=== PATIENT | male | born 1975 | race Caucasian/White ===

== ENCOUNTER 2019-09-09 20:38 | Inpatient (IN) ==
[2019-09-09] MEDS ORDERED: ALBUT/IPRATROP 3MG/0.5MG NEB 3 ML VIAL INH STA (21:02)
[2019-09-09] MEDS ORDERED: methylPREDNISolone 125 MG/2 ML VIAL IV STA (21:02)
--- NOTE | 2019-09-09 21:29 | XRay Report ---
XR chest 1V portable CLINICAL HISTORY: Shortness of breath. COMPARISON STUDY: 06/10/2016 FINDINGS: The heart is the upper limits of normal in size. There is a thoracic dextroscoliosis status post spinal rodding. There are chronic left-sided rib deformities. There are persistent areas of inc reased attenuation within the left midlung zone and right upper lung zone. The prior CT scan dated 06/10/2016 revealed no corresponding lobar consolidation., These areas of increased density are felt to b e related to overlying chest wall attenuation. No pneumothorax is visualized.[ IMPRESSION: 1. No active disease in the chest 2. Scoliosis status post spinal rodding 3. Areas of increased attenuation within the right upper lung zone and left midlung zone, likely rela kiko to overlying chest wall attenuation Electronically signed by: Surinder Edwards M.D. 09/09/2019 9:27 PM
[2019-09-09 21:53] LABS: Influenza A virus by PCR Neg for Influ A (Neg); Influenza B virus by PCR Neg for Influ B (Neg)
[2019-09-09 22:05] LABS: Basophils # (auto) 0.02 K/uL (0-0.2); Basophils % (auto) 0.2 %; Eosinophils # (auto) 0.37 K/uL (0-0.5); Eosinophils % (auto) 3.1 %; Hematocrit (blood only) 50.7 % (42-52); Hemoglobin 17.6 g/dL (14.0-18.0); Immature Granulocytes # (auto) 0.06 K/uL (0.00-0.02); Immature Granulocytes % (auto) 0.5 %; Lymphocytes # (auto) 0.86 K/uL (1.2-3.4); Lymphocytes % (auto) 7.2 %; Mean Corpuscular Hemoglobin 33.3 pg (25-34); Mean Corpuscular Hgb Conc 34.7 g/dL (32-36); Mean Platelet Volume 9.9 fL (7.4-10.4); Monocytes # (auto) 0.68 K/uL (0.11-0.59); Monocytes % (auto) 5.7 %; Neutrophils # (auto) 9.94 K/uL (1.4-6.5); Neutrophils % (auto) 83.3 %; Platelet Count 213 K/uL (130-400); RDW Coefficient of Variation 12.2 % (11.5-14.5); Red Blood Count 5.28 M/uL (4.7-6.1); White Blood Count 11.93 K/uL (4.8-10.8)
[2019-09-09 22:28] LABS: Albumin Globulin Ratio 0.9 (0.9-2); BUN Creatinine Ratio 13.4 (10-20); Bilirubin,Total 0.9 mg/dl (0.2-1); Calcium 9.6 mg/dl (8.5-10.1); Creatinine Clr Calc Pharmacy 123.2 ml/min; Est GFR (African American) 123.4; Est GFR (Non-African American) 106.5; Globulin 4.3 gm/dl (2.5-4.0); Total Protein 8.3 gm/dl (6.4-8.2)
[2019-09-09] MEDS ORDERED: SODIUM CHLORIDE 0.9% 1000ML 1,000 ML IV ONE (23:13)
[2019-09-09 23:18] LABS: Partial Thromboplastin Ratio 0.9; Partial Thromboplastin Time 23.8 Seconds (21.0-31.0); Prothrombin Time 10.7 Seconds (9.0-12.0)
[2019-09-09] MEDS ORDERED: OPTIRAY 320 125ml IV PRN (23:34)
[2019-09-09] MEDS: MAGNESIUM SULFATE / D5W 1 GM/100 ML BAG IV SCH (23:38)
[2019-09-09 23:52] LABS: Magnesium 2.1 mg/dl (1.8-2.4)
[2019-09-10 00:03] LABS: Base Excess ABG -3.1 mEq/L (-9-1.8); HCO3 ABG 22 mmol/L (19-24); PCO2 ABG 38 mmHg (35-46); PO2 ABG 73 mm/Hg (80-95); pH ABG 7.38 (7.35-7.45)
[2019-09-10 00:04] LABS: Allen Test POS (Pos)
[2019-09-10] MEDS: MAGNESIUM SULFATE / D5W 1 GM/100 ML BAG IV SCH (00:29)
[2019-09-10 00:40] LABS: Appearance Urine Clear (Clear); Bilirubin Urine Negative (Negative); Blood Urine Negative (Negative); Color Urine Yellow; Glucose Urine UA Negative (Negative); Ketones Urine Negative (Negative); Leukocyte Esterase Urine Negative (Negative); Nitrite Urine Negative (Negative); Protein Urine Negative (Negative); Specific Gravity Urine 1.045 (1.000-1.030); Urobilinogen Urine Negative (Negative)
--- NOTE | 2019-09-10 00:48 | History & Physical Report ---
Date of Service September 10, 2019 Assessment & Plan (1) Severe sepsis: SIRS plus lactic acid elevation plus hypoxemia secondary to recurrent acute bronchitis Failed outpatient treatment History scoliosis status post surgery Situational hypertension Medical telemetry Supplemental O2 Cultures, Doxycycline IVF, follow lactic acid nebs, prednisone course Pulmonary consult if without improvement RE respiratory failure DVT prophylaxis. Lovenox subcu Full code Total critical care time was 45 minutes. History of Present Illness Chief Complaint: Cough, S OB Primary Care Provider: Yinka Hoskins MD History obtained from patient and records. Medical history significant for scoliosis status post surgery. Recent confinement June 2016 for sepsis secondary to pneumonia. 2 weeks ago, patient noted sinus/chest congestion, cough productive of greenish sputum. Patient seen at PCPs office. No pneumonia on x-ray. Patient prescribed azithromycin, prednisone course, albuterol inhaler for complicated bronchitis. Improved symptoms. Patient went out hunting few days ago. He noted recurrence of bronchitis symptoms. Denies aspiration. Seen at PCPs office. Prescribed Augmentin, prednisone course. Worsening cough, S OB, accompanied by left-sided pleuritic chest pain. At the ER, O2 sats noted to be 80s on room air. Patient received Solu-Medrol and neb treatment for bronchitis. 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, landscaping contractor Allergies Allergy/AdvReac Type Severity Reaction Status Date / Time No Known Allergies Allergy Unverified 09/09/19 22:09 Home Medications Home Medications Medication Instructions Recorded Confirmed Type acetaminophen [Tylenol Extra 1,000 mg PO Q6H PRN 09/09/19 09/09/19 History Strength] albuterol sulfate 2 puff INHALATION Q4 PRN 09/09/19 09/09/19 History amoxicillin-pot clavulanate 1 tab PO Q12H 09/09/19 09/09/19 History [Augmentin] dextromethorphan-guaifenesin 1 tab PO Q12H PRN 09/09/19 09/09/19 History [Mucinex DM] Past Med/Surg History Medical History Pectus excavatum (Acute) Surgical History No pertinent past surgical history Family History Other No pertinent family history Social History Preferred Language: Egyptian Communication Ability: Effective Partner Required: No Beliefs That Will Affect Care: None Current Living Situation: Parent Feels Safe at Home: Yes Smoking Status: Never smoker Tobacco Type: smokeless tobacco ; Do You Dip or Chew Tobacco: Yes (1 can/week) ; Tobacco Cessation Education Requested by Patient: No Hx Alcohol Use: Yes Alcohol type: beer Hx Substance Use: No Review of Systems Review of Systems: As per HPI, all 10 systems reviewed, all other ROS negative Physical Exam Physical Exam: GENERAL: Slightly anxious, tremulous, minimal respiratory distress SKIN: Normal color, warm HEENT: Partial alopecia, pink palpebral conjunctivae, no ptosis, dry buccal mucosa NECK : Supple, no tenderness CHEST : Decreased breath sounds, sternal depression, no tenderness HEART : Tachycardic, no obvious murmurs ABDOMEN: Some distention, nontender EXTREMITIES : No LE swelling/tenderness, no other conspicuous deformities noted NEUROLOGIC : Coherent, no facial asymmetry, no other gross focality Results & Data Vital Signs (Past 12 Hours) Vital Signs Temp Pulse Pulse Resp BP Pulse Ox 09/10/19 00:00 109 H 20 153/81 H 95 09/09/19 23:00 117 H 23 149/79 H 93 09/09/19 22:31 121 H 17 137/78 93 09/09/19 22:01 120 H 18 99 09/09/19 22:00 116 H 24 132/94 100 09/09/19 21:50 107 H 22 99 09/09/19 21:40 112 H 29 H 100 09/09/19 21:30 110 H 26 H 99 09/09/19 21:20 110 H 25 H 99 09/09/19 21:12 105 H 20 92 09/09/19 21:11 92 09/09/19 21:10 107 H 29 H 91 09/09/19 21:01 106 H 28 H 93 09/09/19 21:00 106 H 31 H 173/104 H 92 09/09/19 20:59 109 H 33 H 116/88 93 09/09/19 20:57 105 H 29 H 95 09/09/19 20:44 36.5 C 112 H 28 H 207/98 H 89 L Laboratory Results Laboratory Results WBC 11.93 K/uL (4.8-10.8) H 09/09/19 21:31 RBC 5.28 M/uL (4.7-6.1) 09/09/19 21:31 Hgb 17.6 g/dL (14.0-18.0) 09/09/19 21:31 Hct 50.7 % (42-52) 09/09/19 21:31 MCV 96.0 fL (80-100) 09/09/19 21:31 MCH 33.3 pg (25-34) 09/09/19 21: MCHC 34.7 g/dL (32-36) 09/09/19 21:31 RDW Std Deviation 42.0 fL (36.4-46.3) 09/09/19 21: RDW Coeff of [place] 12.2 % (11.5-14.5) 09/09/19 21: Plt Count 213 K/uL (130-400) 09/09/19 21: MPV 9.9 fL (7.4-10.4) 09/09/19 21:31 Immature Gran % (Auto) 0.5 % 09/09/19 21:31 Neut % (Auto) 83.3 % 09/09/19 21: Lymph % (Auto) 7.2 % 09/09/19 21:31 [place] % (Auto) 5.7 % 09/09/19 21:31 Eos % (Auto) 3.1 % 09/09/19 21:31 Baso % (Auto) 0.2 % 09/09/19 21:31 Immature Gran # (Auto) 0.06 K/uL (0.00-0.02) H 09/09/19 21:31 Neut # (Auto) 9.94 K/uL (1.4-6.5) H 09/09/19 21: Lymph # (Auto) 0.86 K/uL (1.2-3.4) L 09/09/19 21:31 [place] # (Auto) 0.68 K/uL (0.11-0.59) H 09/09/19 21:31 Eos # (Auto) 0.37 K/uL (0-0.5) 09/09/19 21:31 Baso # (Auto) 0.02 K/uL (0-0.2) 09/09/19 21:31 PT 10.7 Seconds (9.0-12.0) 09/09/19 22:47 INR 1.0 (0.9-1.1) 09/09/19 22:47 APTT 23.8 Seconds (21.0-31.0) 09/09/19 22:47 PTT Ratio 0.9 09/09/19 22:47 ABG pH 7.38 (7.35-7.45) 09/09/19 23:54 ABG pCO2 38 mmHg (35-46) 09/09/19 23:54 ABG pO2 73 mm/Hg (80-95) L 09/09/19 23:54 ABG HCO3 22 mmol/L (19-24) 09/09/19 23:54 ABG O2 Saturation 95.0 % (90-95) 09/09/19 23:54 ABG Base Excess -3.1 mEq/L (-9-1.8) 09/09/19 23:54 Jose Miguel Test POS (Pos) 09/09/19 23:54 Barometric Pressure 722.4 mm/Hg 09/09/19 23:54 Oxygen Given ROOM AIR 09/09/19 23:54 Sodium 135 mmol/L (136-145) L 09/09/19 21:31 Potassium 4.0 mmol/L (3.5-5.1) 09/09/19 22:47 Chloride 103 mmol/L (98-107) 09/09/19 21:31 Carbon Dioxide 26 mmol/L (21-32) 09/09/19 21:31 Anion Gap 6.0 (3-11) 09/09/19 21:31 BUN 11 mg/dl (7-18) 09/09/19 21:31 Creatinine 0.84 mg/dl (0.6-1.4) 09/09/19 21:31 Est Cr Clr Drug Dosing 123.2 ml/min 09/09/19 21:31 Est GFR ( Amer) 123.4 09/09/19 21:31 Est GFR (Non-Af Amer) 106.5 09/09/19 21:31 BUN/Creatinine Ratio 13.4 (10-20) 09/09/19 21:31 Glucose 104 mg/dl (70-99) H 09/09/19 21:31 Lactate 3.4 mmol/L (0.4-2.0) H* 09/09/19 23:54 Calcium 9.6 mg/dl (8.5-10.1) 09/09/19 21:31 Magnesium 2.1 mg/dl (1.8-2.4) 09/09/19 22:47 Total Bilirubin 0.9 mg/dl (0.2-1) 09/09/19 21:31 AST 17 U/L (15-37) 09/09/19 22:47 ALT 40 U/L (12-78) 09/09/19 21:31 Alkaline Phosphatase 129 U/L (45-117) H 09/09/19 21:31 POC Troponin I < 0.03 ng/ml (0-0.045) 09/09/19 21:54 Total Protein 8.3 gm/dl (6.4-8.2) H 09/09/19 21:31 Albumin 4.0 gm/dl (3.4-5.0) 09/09/19 21:31 Globulin 4.3 gm/dl (2.5-4.0) H 09/09/19 21:31 Albumin/Globulin Ratio 0.9 (0.9-2) 09/09/19 21:31 Urine Color Yellow 09/10/19 00:30 Urine Appearance Clear (Clear) 09/10/19 00:30 Urine pH 6.0 (4.5-7.5) 09/10/19 00:30 Ur Specific [place] 1.045 (1.000-1.030) H 09/10/19 00:30 Urine Protein Negative (Negative) 09/10/19 00:30 Urine Glucose (UA) Negative (Negative) 09/10/19 00:30 Urine Ketones Negative (Negative) 09/10/19 00:30 Urine Blood Negative (Negative) 09/10/19 00:30 Urine Nitrite Negative (Negative) 09/10/19 00:30 Urine Bilirubin Negative (Negative) 09/10/19 00:30 Urine Urobilinogen Negative (Negative) 09/10/19 00:30 Ur Leukocyte Esterase Negative (Negative) 09/10/19 00:30 Influenza Type A (PCR) Neg for Influ A (Neg) 09/09/19 21:10 Influenza Type B (PCR) Neg for Influ B (Neg) 09/09/19 21:[address] chest initial read: Linear reticular opacity right middle lobe probable atelectasis or scarring. No other airspace opacities. No pulmonary emboli. Pectus excavatum deformity. EKG as per my interpretation rate 115, sinus tachycardia, normal axis, incomplete right bundle branch block, ST depression anterolateral leads
[2019-09-10] MEDS ORDERED: LACTATED RINGER'S 1,000 ML IV ONE ×3 (00:51→23:50)
[2019-09-10] MEDS ORDERED: DOXYCYCLINE HYCLATE 100 MG in DEXTROSE 5% 100 ML IV STA (00:54)
--- NOTE | 2019-09-10 01:20 | Emergency Department Note ---
Entered by Rachel Crump acting as a scribe for History of Present Illness General Chief complaint: Shortness of Breath/Dyspnea Stated complaint: SOB Time Seen by Provider: 09/09/19 20:57 Source: patient History of Present Illness Onset (ago): week(s) (2) Location: chest Pain Consistency: + constant Quality: + other (productive cough) Associated symptoms: + chest pain; no fever/chills and no nausea/vomiting The patient is a 43 year old male who presents to the Emergency Room with complaints of a constant productive cough with yellow/green phlegm beginning 2 weeks ago. The patient reports left-sided chest tightness with coughing and breathing. The patient reports he was started on a Z-Maksim which helped a little. He states he was then given prednisone, but states he finished it 4 days ago. He was also placed on amoxicillin which is not helping his symptoms. The patient denies fever, and vomiting. He denies a history of smoking. He denies a history of emphysema, COPD or asthma. He states he recently had x-rays done at his PCP's office, but has not received the results yet. Home Medications Home Medications Medication Instructions Recorded Confirmed Type acetaminophen [Tylenol Extra 1,000 mg PO Q6H PRN 09/09/19 09/09/19 History Strength] albuterol sulfate 2 puff INHALATION Q4 PRN 09/09/19 09/09/19 History amoxicillin-pot clavulanate 1 tab PO Q12H 09/09/19 09/09/19 History [Augmentin] dextromethorphan-guaifenesin 1 tab PO Q12H PRN 09/09/19 09/09/19 History [Mucinex DM] Allergies Allergy/AdvReac Type Severity Reaction Status Date / Time No Known Allergies Allergy Unverified 09/09/19 22:09 Past Med/Surg History Medical History Pectus excavatum (Acute) Surgical History No pertinent past surgical history Family History Other No pertinent family history Social History Feels Safe at Home: Yes Smoking Status: Never smoker Review of Systems See HPI for pertinent positives & negatives. and A total of 10 systems reviewed and were otherwise negative Physical Exam Vital Signs Vital Signs - 24 hr 09/09/19 20:44 09/09/19 20:57 09/09/19 20:59 Temperature 36.5 C Temperature Source Oral Pulse Rate 112 H 105 H 109 H Pulse Rate [Right Finger] Pulse Rate from SpO2 Sensor 106 H 113 H Respiratory Rate 28 H 29 H 33 H Respiratory Effort / Characteristics Labored Blood Pressure 207/98 H 116/88 Blood Pressure Mean 134 108 Pulse Oximetry 89 L 95 93 Oxygen Delivery Method Room Air Sepsis Recent Fever Within 48 Hours No Sepsis New/Unexplained Change in Mental Status No Sepsis Action Taken by Nursing No Action Required 09/09/19 21:00 09/09/19 21:01 09/09/19 21:10 Temperature Temperature Source Pulse Rate 106 H 106 H 107 H Pulse Rate [Right Finger] Pulse Rate from SpO2 Sensor 112 H 105 H 109 H Respiratory Rate 31 H 28 H 29 H Respiratory Effort / Characteristics Blood Pressure 173/104 H Blood Pressure Mean 131 Pulse Oximetry 92 93 91 Oxygen Delivery Method Sepsis Recent Fever Within 48 Hours Sepsis New/Unexplained Change in Mental Status Sepsis Action Taken by Nursing 09/09/19 21:11 09/09/19 21:12 09/09/19 21:20 Temperature Temperature Source Pulse Rate 110 H Pulse Rate [Right Finger] 105 H Pulse Rate from SpO2 Sensor 111 H Respiratory Rate 20 25 H Respiratory Effort / Characteristics Spontaneous Blood Pressure Blood Pressure Mean Pulse Oximetry 92 92 99 Oxygen Delivery Method Room Air Room Air Sepsis Recent Fever Within 48 Hours Sepsis New/Unexplained Change in Mental Status Sepsis Action Taken by Nursing 09/09/19 21:30 09/09/19 21:40 09/09/19 21:50 Temperature Temperature Source Pulse Rate 110 H 112 H 107 H Pulse Rate [Right Finger] Pulse Rate from SpO2 Sensor 112 H 111 H 112 H Respiratory Rate 26 H 29 H 22 Respiratory Effort / Characteristics Blood Pressure Blood Pressure Mean Pulse Oximetry 99 100 99 Oxygen Delivery Method Sepsis Recent Fever Within 48 Hours Sepsis New/Unexplained Change in Mental Status Sepsis Action Taken by Nursing 09/09/19 22:00 09/09/19 22:01 09/09/19 22:31 Temperature Temperature Source Pulse Rate 116 H 120 H 121 H Pulse Rate [Right Finger] Pulse Rate from SpO2 Sensor 116 H 124 H 121 H Respiratory Rate 24 18 17 Respiratory Effort / Characteristics Blood Pressure 132/94 137/78 Blood Pressure Mean 100 93 Pulse Oximetry 100 99 93 Oxygen Delivery Method Room Air Sepsis Recent Fever Within 48 Hours Sepsis New/Unexplained Change in Mental Status Sepsis Action Taken by Nursing 09/09/19 23:00 09/10/19 00:00 Temperature Temperature Source Pulse Rate 117 H 109 H Pulse Rate [Right Finger] Pulse Rate from SpO2 Sensor 116 H 108 H Respiratory Rate 23 20 Respiratory Effort / Characteristics Blood Pressure 149/79 H 153/81 H Blood Pressure Mean 103 92 Pulse Oximetry 93 95 Oxygen Delivery Method Room Air Room Air Sepsis Recent Fever Within 48 Hours Sepsis New/Unexplained Change in Mental Status Sepsis Action Taken by Nursing Constitutional: Vital signs reviewed. Eyes: Pupils are equal round reactive to light. Conjunctiva are noninjected. ENT: Pharynx is clear without erythema or exudate. Mucous membranes are moist. Neck supple without meningeal signs. Respiratory: Diffuse wheezing bilaterally. Breath sounds are equal bilaterally. Cardiovascular: Tachycardic rate of 103. Regular rhythm. No rubs or gallops. GI: Soft, nondistended and nontender. Bowel sounds are present. Musculoskeletal: No peripheral edema. No lower extremity tenderness. Pectus excavatum. Integumentary: No cyanosis. Neurological: The patient is awake and alert. No focal deficits. Psychiatric: Normal affect. Course Course 2100: Past medical records reviewed. The patient was evaluated in room B12B. A complete history and physical exam was performed. 2018: Upon reevaluation, the patient feels better. He still has significant wheezing on exam. 2300: Upon reevaluation, the patient O2 saturation was 92%. He still has wheezing. I recommended hospitalization. The patient verbalized agreement of the treatment plan. I spoke with Dr. Crandall of the [facility]. The patient will be evaluated for further management and care. Administered Medications Magnesium Sulfate/Dextrose (Magnesium Sulfate / D5w) 1 gm in 100 mls @ 100 mls/hr IV Q1H ERNIE Stop: 09/10/19 01:29 Last Admin: 09/10/19 00:29 Dose: 100 mls/hr Documented by: [id number] Infusion: 09/10/19 00:29 Dose: 100 mls/hr Documented by: [id number] Admin: 09/09/19 23:38 Dose: 100 mls/hr Documented by: [id number] Ioversol (Optiray 320 125ml) 125 ml IV ONCE PRN PRN Reason: Interaction Checking Stop: 09/13/19 23:33 Last Admin: 09/09/19 23:34 Dose: 109 ml Documented by: [id number] Discontinued Medications Albuterol (Duoneb) 12 ml INH ONE STA Stop: 09/09/19 21:03 Last Admin: 09/09/19 21:11 Dose: 12 ml Documented by: [id number] Sodium Chloride (Nss 1000ml) 1,000 mls @ 999 mls/hr IV .Q1H1M ONE Stop: 09/10/19 00:13 Last Infusion: 09/10/19 00:29 Dose: 0 mls/hr Documented by: [id number] Admin: 09/09/19 23:39 Dose: 999 mls/hr Documented by: [id number] Methylprednisolone (Solumedrol) 125 mg IV NOW STA Stop: 09/09/19 21:03 Last Admin: 09/09/19 21:24 Dose: 125 mg Documented by: [id number] Critical Care Time Critical Care Time: Yes Total Critical Care Time: 35 I have personally spent 35 minutes of critical care time in the direct management of this patient. This includes bedside care, interpretation of diagnostic studies, and testing, discussion with consultants, patient, and family members, and other required patient management activities. This 35 minutes is in excess of all separately billable procedures. Medical Decision Making Differential Diagnosis Differential diagnosis: pneumonia, asthma, influenza, emphysema, bronchitis Medical Records Attestation: I reviewed the patient's medical records. I did perform a limited focused review of portions of the patient's old chart on the electronic medical record. The patient has had no recent pertinent visits to this hospital. Home Medications Current Medication List: was personally reviewed by me Laboratory Data Attestation: I reviewed the patient's lab results. Result diagrams: 09/09/19 21:31 09/09/19 22:47 Lab Results 09/09/19 09/09/19 09/09/19 Range/Units 21:10 21:31 21:31 WBC 11.93 H (4.8-10.8) K/uL RBC 5.28 (4.7-6.1) M/uL Hgb 17.6 (14.0-18.0) g/dL Hct 50.7 (42-52) % MCV 96.0 (80-100) fL MCH 33.3 (25-34) pg MCHC 34.7 (32-36) g/dL RDW Std Deviation 42.0 (36.4-46.3) fL RDW Coeff of K[place] 12.2 (11.5-14.5) % Plt Count 213 (130-400) K/uL MPV 9.9 (7.4-10.4) fL Immature Gran % (Auto) 0.5 % Neut % (Auto) 83.3 % Lymph % (Auto) 7.2 % [place] % (Auto) 5.7 % Eos % (Auto) 3.1 % Baso % (Auto) 0.2 % Immature Gran # (Auto) 0.06 H (0.00-0.02) K/uL Neut # (Auto) 9.94 H (1.4-6.5) K/uL Lymph # (Auto) 0.86 L (1.2-3.4) K/uL [place] # (Auto) 0.68 H (0.11-0.59) K/uL Eos # (Auto) 0.37 (0-0.5) K/uL Baso # (Auto) 0.02 (0-0.2) K/uL PT Cancelled INR Cancelled APTT Cancelled PTT Ratio Cancelled ABG pH (7.35-7.45) ABG pCO2 (35-46) mmHg ABG pO2 (80-95) mm/Hg ABG HCO3 (19-24) mmol/L ABG O2 Saturation (90-95) % ABG Base Excess (-9-1.8) mEq/L Jose Miguel Test (Pos) Barometric Pressure mm/Hg Oxygen Given Sodium (136-145) mmol/L Potassium (3.5-5.1) mmol/L Chloride (98-107) mmol/L Carbon Dioxide (21-32) mmol/L Anion Gap (3-11) BUN (7-18) mg/dl Creatinine (0.6-1.4) mg/dl Est Cr Clr Drug Dosing ml/min Est GFR ( Amer) Est GFR (Non-Af Amer) BUN/Creatinine Ratio (10-20) Glucose (70-99) mg/dl Lactate (0.4-2.0) mmol/L Calcium (8.5-10.1) mg/dl Magnesium (1.8-2.4) mg/dl Total Bilirubin (0.2-1) mg/dl AST (15-37) U/L ALT (12-78) U/L Alkaline Phosphatase (45-117) U/L POC Troponin I (0-0.045) ng/ml Total Protein (6.4-8.2) gm/dl Albumin (3.4-5.0) gm/dl Globulin (2.5-4.0) gm/dl Albumin/Globulin Ratio (0.9-2) Urine Color Urine Appearance (Clear) Urine pH (4.5-7.5) Ur Specific [place] (1.000-1.030) Urine Protein (Negative) Urine Glucose (UA) (Negative) Urine Ketones (Negative) Urine Blood (Negative) Urine Nitrite (Negative) Urine Bilirubin (Negative) Urine Urobilinogen (Negative) Ur Leukocyte Esterase (Negative) Influenza Type A (PCR) Neg for Influ A (Neg) Influenza Type B (PCR) Neg for Influ B (Neg) 09/09/19 09/09/19 09/09/19 Range/Units 21:31 21:54 22:47 WBC (4.8-10.8) K/uL RBC (4.7-6.1) M/uL Hgb (14.0-18.0) g/dL Hct (42-52) % MCV (80-100) fL MCH (25-34) pg MCHC (32-36) g/dL RDW Std Deviation (36.4-46.3) fL RDW Coeff of Kota (11.5-14.5) % Plt Count (130-400) K/uL MPV (7.4-10.4) fL Immature Gran % (Auto) % Neut % (Auto) % Lymph % (Auto) % [place] % (Auto) % Eos % (Auto) % Baso % (Auto) % Immature Gran # (Auto) (0.00-0.02) K/uL Neut # (Auto) (1.4-6.5) K/uL Lymph # (Auto) (1.2-3.4) K/uL [place] # (Auto) (0.11-0.59) K/uL Eos # (Auto) (0-0.5) K/uL Baso # (Auto) (0-0.2) K/uL PT 10.7 INR 1.0 APTT 23.8 PTT Ratio 0.9 ABG pH (7.35-7.45) ABG pCO2 (35-46) mmHg ABG pO2 (80-95) mm/Hg ABG HCO3 (19-24) mmol/L ABG O2 Saturation (90-95) % ABG Base Excess (-9-1.8) mEq/L Jose Miguel Test (Pos) Barometric Pressure mm/Hg Oxygen Given Sodium 135 L (136-145) mmol/L Potassium (3.5-5.1) mmol/L Chloride 103 (98-107) mmol/L Carbon Dioxide 26 (21-32) mmol/L Anion Gap 6.0 (3-11) BUN 11 (7-18) mg/dl Creatinine 0.84 (0.6-1.4) mg/dl Est Cr Clr Drug Dosing 123.2 ml/min Est GFR ( Amer) 123.4 Est GFR (Non-Af Amer) 106.5 BUN/Creatinine Ratio 13.4 (10-20) Glucose 104 H (70-99) mg/dl Lactate (0.4-2.0) mmol/L Calcium 9.6 (8.5-10.1) mg/dl Magnesium (1.8-2.4) mg/dl Total Bilirubin 0.9 (0.2-1) mg/dl AST (15-37) U/L ALT 40 (12-78) U/L Alkaline Phosphatase 129 H (45-117) U/L POC Troponin I < 0.03 (0-0.045) ng/ml Total Protein 8.3 H (6.4-8.2) gm/dl Albumin 4.0 (3.4-5.0) gm/dl Globulin 4.3 H (2.5-4.0) gm/dl Albumin/Globulin Ratio 0.9 (0.9-2) Urine Color Urine Appearance (Clear) Urine pH (4.5-7.5) Ur Specific [place] (1.000-1.030) Urine Protein (Negative) Urine Glucose (UA) (Negative) Urine Ketones (Negative) Urine Blood (Negative) Urine Nitrite (Negative) Urine Bilirubin (Negative) Urine Urobilinogen (Negative) Ur Leukocyte Esterase (Negative) Influenza Type A (PCR) (Neg) Influenza Type B (PCR) (Neg) 09/09/19 09/09/19 09/09/19 Range/Units 22:47 23:54 23:54 WBC (4.8-10.8) K/uL RBC (4.7-6.1) M/uL Hgb (14.0-18.0) g/dL Hct (42-52) % MCV (80-100) fL MCH (25-34) pg MCHC (32-36) g/dL RDW Std Deviation (36.4-46.3) fL RDW Coeff of Kota (11.5-14.5) % Plt Count (130-400) K/uL MPV (7.4-10.4) fL Immature Gran % (Auto) % Neut % (Auto) % Lymph % (Auto) % [place] % (Auto) % Eos % (Auto) % Baso % (Auto) % Immature Gran # (Auto) (0.00-0.02) K/uL Neut # (Auto) (1.4-6.5) K/uL Lymph # (Auto) (1.2-3.4) K/uL [place] # (Auto) (0.11-0.59) K/uL Eos # (Auto) (0-0.5) K/uL Baso # (Auto) (0-0.2) K/uL PT INR APTT PTT Ratio ABG pH 7.38 (7.35-7.45) ABG pCO2 38 (35-46) mmHg ABG pO2 73 L (80-95) mm/Hg ABG HCO3 22 (19-24) mmol/L ABG O2 Saturation 95.0 (90-95) % ABG Base Excess -3.1 (-9-1.8) mEq/L Jose Miguel Test POS (Pos) Barometric Pressure 722.4 mm/Hg Oxygen Given ROOM AIR Sodium (136-145) mmol/L Potassium 4.0 (3.5-5.1) mmol/L Chloride (98-107) mmol/L Carbon Dioxide (21-32) mmol/L Anion Gap (3-11) BUN (7-18) mg/dl Creatinine (0.6-1.4) mg/dl Est Cr Clr Drug Dosing ml/min Est GFR ( Amer) Est GFR (Non-Af Amer) BUN/Creatinine Ratio (10-20) Glucose (70-99) mg/dl Lactate 3.4 H* (0.4-2.0) mmol/L Calcium (8.5-10.1) mg/dl Magnesium 2.1 (1.8-2.4) mg/dl Total Bilirubin (0.2-1) mg/dl AST 17 (15-37) U/L ALT (12-78) U/L Alkaline Phosphatase (45-117) U/L POC Troponin I (0-0.045) ng/ml Total Protein (6.4-8.2) gm/dl Albumin (3.4-5.0) gm/dl Globulin (2.5-4.0) gm/dl Albumin/Globulin Ratio (0.9-2) Urine Color Urine Appearance (Clear) Urine pH (4.5-7.5) Ur Specific [place] (1.000-1.030) Urine Protein (Negative) Urine Glucose (UA) (Negative) Urine Ketones (Negative) Urine Blood (Negative) Urine Nitrite (Negative) Urine Bilirubin (Negative) Urine Urobilinogen (Negative) Ur Leukocyte Esterase (Negative) Influenza Type A (PCR) (Neg) Influenza Type B (PCR) (Neg) 09/10/19 Range/Units 00:30 WBC (4.8-10.8) K/uL RBC (4.7-6.1) M/uL Hgb (14.0-18.0) g/dL Hct (42-52) % MCV (80-100) fL MCH (25-34) pg MCHC (32-36) g/dL RDW Std Deviation (36.4-46.3) fL RDW Coeff of Kota (11.5-14.5) % Plt Count (130-400) K/uL MPV (7.4-10.4) fL Immature Gran % (Auto) % Neut % (Auto) % Lymph % (Auto) % [place] % (Auto) % Eos % (Auto) % Baso % (Auto) % Immature Gran # (Auto) (0.00-0.02) K/uL Neut # (Auto) (1.4-6.5) K/uL Lymph # (Auto) (1.2-3.4) K/uL [place] # (Auto) (0.11-0.59) K/uL Eos # (Auto) (0-0.5) K/uL Baso # (Auto) (0-0.2) K/uL PT INR APTT PTT Ratio ABG pH (7.35-7.45) ABG pCO2 (35-46) mmHg ABG pO2 (80-95) mm/Hg ABG HCO3 (19-24) mmol/L ABG O2 Saturation (90-95) % ABG Base Excess (-9-1.8) mEq/L Jose Miguel Test (Pos) Barometric Pressure mm/Hg Oxygen Given Sodium (136-145) mmol/L Potassium (3.5-5.1) mmol/L Chloride (98-107) mmol/L Carbon Dioxide (21-32) mmol/L Anion Gap (3-11) BUN (7-18) mg/dl Creatinine (0.6-1.4) mg/dl Est Cr Clr Drug Dosing ml/min Est GFR ( Amer) Est GFR (Non-Af Amer) BUN/Creatinine Ratio (10-20) Glucose (70-99) mg/dl Lactate (0.4-2.0) mmol/L Calcium (8.5-10.1) mg/dl Magnesium (1.8-2.4) mg/dl Total Bilirubin (0.2-1) mg/dl AST (15-37) U/L ALT (12-78) U/L Alkaline Phosphatase (45-117) U/L POC Troponin I (0-0.045) ng/ml Total Protein (6.4-8.2) gm/dl Albumin (3.4-5.0) gm/dl Globulin (2.5-4.0) gm/dl Albumin/Globulin Ratio (0.9-2) Urine Color Yellow Urine Appearance Clear (Clear) Urine pH 6.0 (4.5-7.5) Ur Specific [place] 1.045 H (1.000-1.030) Urine Protein Negative (Negative) Urine Glucose (UA) Negative (Negative) Urine Ketones Negative (Negative) Urine Blood Negative (Negative) Urine Nitrite Negative (Negative) Urine Bilirubin Negative (Negative) Urine Urobilinogen Negative (Negative) Ur Leukocyte Esterase Negative (Negative) Influenza Type A (PCR) (Neg) Influenza Type B (PCR) (Neg) Imaging Data Radiologist's Impression: Radiology results as stated below per my review and the radiologist's interpretation: XR chest 1V portable CLINICAL HISTORY: Shortness of breath. COMPARISON STUDY: 06/10/2016 FINDINGS: The heart is the upper limits of normal in size. There is a thoracic dextroscoliosis status post spinal rodding. There are chronic left-sided rib deformities. There are persistent areas of increased attenuation within the left midlung zone and right upper lung zone. The prior CT scan dated 06/10/2016 revealed no corresponding lobar consolidation., These areas of increased density are felt to be related to overlying chest wall attenuation. No pneumothorax is visualized.[ IMPRESSION: 1. No active disease in the chest 2. Scoliosis status post spinal rodding 3. Areas of increased attenuation within the right upper lung zone and left midlung zone, likely related to overlying chest wall attenuation Electronically signed by: Surinder Edwards M.D. 09/09/2019 9:27 PM ECG Data Attestation: I personally reviewed and interpreted this ECG as follows: Indication: + chest pain Rate (beats per minute): 111 Rhythm: + sinus tachycardia ECG Intervals/blocks: + Right Bundle branch block (incomplete) ECG ST segments: + Nonspecific ST abnormalities (laterally) ECG Findings: no PVCs Blood Pressure Blood Pressure Findings: Elevated blood pressure Blood Pressure Disposition: further management by hospitalist [facility] Narrative I did evaluate the patient as noted above. The patient is presenting with a 2- week history of cold symptoms and difficulty breathing which has gotten worse recently. On exam he is wheezing diffusely. He denies any history of smoking or asthma or COPD. IV access was established. His O2 saturations are in the low 90s. He was 89% in triage. The patient was placed on a continuous classroom monitor. Cardiac monitoring: Indication: Respiratory distress and tachycardia. Rate and rhythm: Sinus tachycardia. Rate of 111. No dysrhythmia or widening of the QRS. I did order and personally review the patient's 12-lead EKG as described above. Twelve-lead EKG does not demonstrate any acute ischemia. He does have tachycardia. I did order and personally reviewed the images of the patient's chest x-ray as described above. He has no evidence of pneumonia. I did order and review the patient's blood work as noted in the electronic medical record. CBC demonstrates a mild leukocytosis. No anemia. Electrolytes are unremarkable other than a sodium 135. Troponin is negative. I did treat the patient with IV Solu-Medrol. He was also given a continuous hour-long DuoNeb. I did reexamine the patient. He still has continued wheezing. His O2 saturations remained in the low 90s and he is tachypneic. I did give him IV magnesium. I did recommend hospitalization given his continued symptoms. I did discuss the case with the hospitalist and caseworker intake. Impression & Plan Acute respiratory distress, Hypoxia, Bronchitis with bronchospasm, Pectus excavatum Discharge Plan Visit Data Chief Complaint: Shortness of Breath/Dyspnea Stated Complaint: SOB ED Provider: Jean Goodson Discharge Problem: Acute respiratory distress, Hypoxia, Bronchitis with bronchospasm, Pectus excavatum Patient Disposition: Being Evaluated by Hospitalist Forms Stand Alone Forms: My [facility] Prescriptions Prescriptions: No Action acetaminophen [Tylenol Extra Strength] 500 mg Tablet 1,000 mg PO Q6H PRN (Reason: Pain) RF: 0 Mucinex DM 30-600 mg Tablet Extended Release 12 Hr 1 tab PO Q12H PRN (Reason: Cough) RF: 0 albuterol sulfate 90 mcg/actuation Hfa Aerosol Inhaler 2 puff INHALATION Q4 PRN (Reason: Wheezing) RF: 0 amoxicillin-pot clavulanate [Augmentin] 875-125 mg Tablet 1 tab PO Q12H RF: 0 Referrals Referrals: Yinka Hoskins MD [Primary Care Provider] - The scribe's documentation has been prepared under my direction and personally reviewed by me in its entirety. I confirm that the note above accurately reflects all work, treatment, procedures, and medical decision making performed by me.
[2019-09-10] MEDS ORDERED: ACETAMINOPHEN 325 MG TAB PO PRN (01:48)
[2019-09-10] MEDS ORDERED: MoRPHine SULFATE 4 MG/ML 1 ML CARP\\VIAL IV PRN (01:48)
[2019-09-10] MEDS ORDERED: XOPENEX/ATROVENT 1.25mg/0.5MG NEB COMBO NEB SCH (01:48)
[2019-09-10] MEDS ORDERED: OXYCODONE HCL IR 5 MG TAB (IMMEDIATE RELEASE) PO PRN (01:48)
[2019-09-10] MEDS ORDERED: PROMETHAZINE HCL 12.5 MG in SODIUM CHLORIDE 0.9% 50 ML IV PRN (01:48)
[2019-09-10] MEDS ORDERED: LORazepam 0.5 MG/1 ML VIAL IV PRN (01:48)
[2019-09-10] MEDS: IPRATROPIUM BROMIDE NEB SOLN 0.02% 2.5 ML VIAL INH SCH ×4 (02:00→19:46)
[2019-09-10] MEDS: LEVALBUTEROL 1.25MG/0.5ML NEB INH SCH ×4 (02:01→19:46)
[2019-09-10 02:13] LABS: Thyroid Stimulating Hormone 0.538 uIu/ml (0.300-4.500)
[2019-09-10] MEDS ORDERED: LACTATED RINGER'S 1,000 ML IV SCH ×2 (03:00→21:00)
[2019-09-10 05:44] LABS: Eosinophils # (auto) 0.01 K/uL (0-0.5); Eosinophils % (auto) 0.1 %; Hematocrit (blood only) 43.6 % (42-52); Hemoglobin 14.7 g/dL (14.0-18.0); Immature Granulocytes # (auto) 0.03 K/uL (0.00-0.02); Immature Granulocytes % (auto) 0.4 %; Lymphocytes # (auto) 0.32 K/uL (1.2-3.4); Lymphocytes % (auto) 4.8 %; Mean Corpuscular Hemoglobin 31.6 pg (25-34); Mean Corpuscular Hgb Conc 33.7 g/dL (32-36); Mean Corpuscular Volume 93.8 fL (80-100); Mean Platelet Volume 9.2 fL (7.4-10.4); Monocytes # (auto) 0.03 K/uL (0.11-0.59); Monocytes % (auto) 0.4 %; Neutrophils # (auto) 6.32 K/uL (1.4-6.5); Neutrophils % (auto) 94.3 %; Platelet Count 202 K/uL (130-400); RDW Coefficient of Variation 12.1 % (11.5-14.5); RDW Standard Deviation 40.9 fL (36.4-46.3); Red Blood Count 4.65 M/uL (4.7-6.1); White Blood Count 6.71 K/uL (4.8-10.8)
[2019-09-10 05:59] LABS: Calcium 8.7 mg/dl (8.5-10.1); Creatinine Clr Calc Pharmacy 135.7 ml/min; Est GFR (Non-African American) 112.2; Potassium 4.3 mmol/L (3.5-5.1)
[2019-09-10] MEDS ORDERED: DEXTROSE 50% 50 ML SYRINGE IV PRN (06:11)
[2019-09-10] MEDS ORDERED: GLUCAGON FOR INJ 1 MG VIAL SQ PRN (06:11)
[2019-09-10] MEDS ORDERED: CARBOHYDRATES FOR HYPOGLYCEMIA PO PRN (06:11)
[2019-09-10] MEDS ORDERED: GLUCOSE 10 TABS/TUBE PO PRN (06:11)
[2019-09-10] MEDS ORDERED: GLUCOSE 40% GEL 15 GM TUBE PO PRN (06:11)
[2019-09-10] MEDS: INSULIN ASPART 100 UNITS/ML 3 ML PEN SC SCH ×4 (06:27→20:11)
[2019-09-10] MEDS ORDERED: LANTUS PER UNIT CHARGE SQ SCH (06:30)
[2019-09-10 07:24] LABS: Estimated Average Glucose 117 mg/dl; Hemoglobin A1C 5.7 % (4.5-5.6)
--- NOTE | 2019-09-10 07:24 | CT Scan Report ---
CHEST CTA for PULMONARY ARTERIES CT DOSE: 514.41 mGy.cm HISTORY: Atypical chest pain. TECHNIQUE: Multiaxial CT images of the chest were performed following the intravenous administration of contrast to evaluate the pulmonary arteries. Maximal intensity projection images were also obtaine d. A dose lowering technique was utilized adhering to the principles of ALARA. COMPARISON STUDY: Chest CT 06/10/2016. Chest CTA 06/07/2016. FINDINGS: Normal caliber thoracic aorta with no evidence for dissection. The heart is normal in size. No pleural or pericardial effusions. No filling defects within the pulmonary arteries to suggest pul monary embolus. No mediastinal or hilar lymphadenopathy. Normal esophagus. Limited views of the upper abdomen demonstrate a normal liver, spleen, and adrenal glands. Scoliosis with thoracic spinal Harri ngton rods are again noted. Pectus excavatum deformity remains unchanged. No fractures within the vis ualized osseous structures. No pneumothorax. The central airways are patent. Stable linear scarlike d ensities within the right anterior lung. No new focal lung consolidations to suggest pneumonia. IMPRESSION: 1. No evidence for pulmonary embolus. 2. Additional stable findings as described above. Electronically signed by: Zack Barrios M.D. 09/10/2019 7:22 AM
[2019-09-10] MEDS: predniSONE 20 MG TAB PO SCH (07:55)
[2019-09-10] MEDS: ENOXAPARIN INJ 40 MG/0.4 ML SYR SQ SCH (07:56)
[2019-09-10] MEDS ORDERED: PNEUMOCOCCAL Polysaccharide Vaccine 25mcg/0.5mL vial/Syr IM ONE (08:00)
[2019-09-10] MEDS ORDERED: methylPREDNISolone 40 MG in SYRINGE 0 ML IV SCH (09:00)
[2019-09-10] MEDS ORDERED: SODIUM CHLORIDE 0.9% 1000ML 1,000 ML IV ONE (19:49)
[2019-09-10] MEDS: DOXYCYCLINE HYCLATE 100 MG CAP PO SCH (20:09)
--- NOTE | 2019-09-10 21:28 | Hospitalist Progress Note ---
Date of Service September 10, 2019 Subjective Patient seen and examined in room N277. patient is ambulating, no longer using supplemental oxygen and comfortably breathing on room air. Says his respiratory distress is usually triggered by dust (in cabin where he was for hunting), or hot steam (shower). Reports diagnosis of asthma as a child, used inhaler for only very short time. We will continue to closely monitor his respiratory status. Results & Data Vital Signs (Past 12 Hours) Vital Signs Temp Pulse Pulse Resp BP Pulse Ox 09/10/19 19:47 103 H 18 96 09/10/19 19:33 36.5 C 107 H 18 158/80 H 94 09/10/19 16:13 108 H 09/10/19 15:34 36.7 C 110 H 20 134/80 94 09/10/19 13:36 100 H 18 96 09/10/19 11:25 36.8 C 99 H 18 135/74 95
[2019-09-11] MEDS: IPRATROPIUM BROMIDE NEB SOLN 0.02% 2.5 ML VIAL INH SCH ×3 (01:41→13:32)
[2019-09-11] MEDS: LEVALBUTEROL 1.25MG/0.5ML NEB INH SCH ×3 (01:41→13:32)
[2019-09-11] MEDS ORDERED: LACTATED RINGER'S 1,000 ML IV SCH (02:00)
[2019-09-11 04:09] LABS: Basophils # (auto) 0.01 K/uL (0-0.2); Basophils % (auto) 0.1 %; Eosinophils # (auto) 0.07 K/uL (0-0.5); Eosinophils % (auto) 0.5 %; Hematocrit (blood only) 39.4 % (42-52); Hemoglobin 12.9 g/dL (14.0-18.0); Immature Granulocytes # (auto) 0.06 K/uL (0.00-0.02); Immature Granulocytes % (auto) 0.4 %; Lymphocytes % (auto) 12.1 %; Mean Corpuscular Hemoglobin 31.7 pg (25-34); Mean Corpuscular Hgb Conc 32.7 g/dL (32-36); Mean Corpuscular Volume 96.8 fL (80-100); Monocytes % (auto) 9.2 %; Neutrophils # (auto) 10.93 K/uL (1.4-6.5); Neutrophils % (auto) 77.7 %; Platelet Count 209 K/uL (130-400); RDW Coefficient of Variation 12.2 % (11.5-14.5); Red Blood Count 4.07 M/uL (4.7-6.1); White Blood Count 14.07 K/uL (4.8-10.8)
[2019-09-11 04:28] LABS: Calcium 8.7 mg/dl (8.5-10.1); Creatinine Clr Calc Pharmacy 132.1 ml/min; Est GFR (African American) 128.6; Magnesium 2.2 mg/dl (1.8-2.4); Potassium 4.1 mmol/L (3.5-5.1)
[2019-09-11] MEDS ORDERED: LACTATED RINGER'S 1,000 ML IV STA (05:05)
[2019-09-11] MEDS: DOXYCYCLINE HYCLATE 100 MG CAP PO SCH ×2 (07:43→20:03)
[2019-09-11] MEDS: predniSONE 20 MG TAB PO SCH (07:43)
[2019-09-11] MEDS: ENOXAPARIN INJ 40 MG/0.4 ML SYR SQ SCH (07:44)
[2019-09-11] MEDS: INSULIN ASPART 100 UNITS/ML 3 ML PEN SC SCH ×4 (08:31→21:16)
[2019-09-11] MEDS: INSULIN GLARGINE SOLOSTAR 100 UNITS/ML 3 ML PEN SQ SCH (08:31)
[2019-09-11] MEDS ORDERED: LIDOCAINE 5% 1 PATCH TD SCH (19:30)
[2019-09-11] MEDS: ACETAMINOPHEN 325 MG TAB PO SCH (20:02)
[2019-09-11] MEDS: guaiFENesin 600 MG TABCR PO SCH (20:03)
--- NOTE | 2019-09-11 20:17 | Hospitalist Progress Note ---
Date of Service September 11, 2019 Assessment & Plan (1) Severe sepsis: SIRS plus lactic acid elevation plus hypoxemia secondary to recurrent acute bronchitis Acute hypoxic resp. failure d/t recurrent acute bronchitis Failed outpatient treatment Initially desat. to 80%, now no need for suppl. O2 Cont. monitor on telemetry Cont. Doxycyline BID, DuoNebs, prednisone Add Guaifenesin Ribcage tenderness (from coughing) - will provide lidocaine patch, tylenol History scoliosis status post surgery Situational hypertension - cont. to monitor DVT prophylaxis. Lovenox subcu Full code Subjective No acute events overnight. Patient is ambulating, not needing supplemental oxygen and comfortably breathing on room air. Says his respiratory distress is usually triggered by dust (in cabin where he was for hunting), or hot steam (shower). Feeling much better now. Denies any fever, chills, shortness of breath, says his ribcage is tender from coughing. No abd. pain., nausea, vomiting. Review of Systems Review of Systems: All systems reviewed & are unremarkable except as noted in HPI & below Constitutional: + body aches (some ribcage discomfort from coughing); no fever, no chills and no fatigue Respiratory: + cough; no dyspnea Cardiovascular: no palpitations and no edema Gastrointestinal: no abdominal pain, no nausea and no vomiting Physical Exam Physical Exam: pt breathing on room air, ambulating, in NAD Constitutional: well developed and well nourished; no acute distress Eyes: PERRL, conjunctivae normal, anicteric sclerae EOM intact bilaterally ENMT: external ear and nose normal, oropharynx normal Neck: trachea midline, no thyromegaly normal visual inspection Respiratory: normal respiratory effort; no respiratory distress, no retractions and does not use accessory muscles Auscultation: + diminished lung sounds (b/l); no crackles, no rhonchi and no wheezes Cardiovascular: RRR, no murmur, no edema Heart Sounds: normal S1 and normal S2 Extremities: no edema Chest (Breasts): Chest: + abnormal inspection of chest Gastrointestinal (Abdomen): Inspection/Auscultation: normal bowel sounds Percussion/Palpation: abdomen soft; abdomen nontender and no guarding Musculoskeletal: Head/Neck/Chest: normocephalic, head atraumatic and neck supple Extremities: extremities normal to inspection and strength 5/5 throughout Skin: no rashes, warm and dry Neurologic: PERRL, EOMI, accommodation nl, no face palsy, no dysarthria moves all extremities; no focal motor deficits Speech / Cognition: normal speech Psychiatric: A+Ox3, euthymic affect Genitourinary: no CVA tenderness Lymphatic: no cervical or axillary lymphadenopathy Results & Data Vital Signs (Past 12 Hours) Vital Signs Temp Pulse Pulse Resp BP BP Pulse Ox 09/11/19 19:52 36.6 C 92 H 20 125/75 96 09/11/19 16:41 111 H 09/11/19 15:36 37.0 C 92 H 19 136/79 97 09/11/19 13:34 97 H 16 97 Laboratory Results 09/11/19 09/11/19 09/11/19 Range/Units 16:16 11:47 07:28 WBC (4.8-10.8) K/uL RBC (4.7-6.1) M/uL Hgb (14.0-18.0) g/dL Hct (42-52) % MCV (80-100) fL MCH (25-34) pg MCHC (32-36) g/dL RDW Std Deviation (36.4-46.3) fL RDW Coeff of Kota (11.5-14.5) % Plt Count (130-400) K/uL MPV (7.4-10.4) fL Immature Gran % (Auto) % Neut % (Auto) % Lymph % (Auto) % [place] % (Auto) % Eos % (Auto) % Baso % (Auto) % Immature Gran # (Auto) (0.00-0.02) K/uL Neut # (Auto) (1.4-6.5) K/uL Lymph # (Auto) (1.2-3.4) K/uL [place] # (Auto) (0.11-0.59) K/uL Eos # (Auto) (0-0.5) K/uL Baso # (Auto) (0-0.2) K/uL Sodium (136-145) mmol/L Potassium (3.5-5.1) mmol/L Chloride (98-107) mmol/L Carbon Dioxide (21-32) mmol/L Anion Gap (3-11) BUN (7-18) mg/dl Creatinine (0.6-1.4) mg/dl Est Cr Clr Drug Dosing ml/min Est GFR ( Amer) Est GFR (Non-Af Amer) BUN/Creatinine Ratio (10-20) Glucose (70-99) mg/dl POC Glucose 154 H 121 H 109 H (70-99) Lactate (0.4-2.0) mmol/L Calcium (8.5-10.1) mg/dl Magnesium (1.8-2.4) mg/dl 09/11/19 09/11/19 09/11/19 Range/Units 03:59 03:59 03:59 WBC 14.07 H (4.8-10.8) K/uL RBC 4.07 L (4.7-6.1) M/uL Hgb 12.9 L (14.0-18.0) g/dL Hct 39.4 L (42-52) % MCV 96.8 (80-100) fL MCH 31.7 (25-34) pg MCHC 32.7 (32-36) g/dL RDW Std Deviation 43.0 (36.4-46.3) fL RDW Coeff of Kota 12.2 (11.5-14.5) % Plt Count 209 (130-400) K/uL MPV 9.0 (7.4-10.4) fL Immature Gran % (Auto) 0.4 % Neut % (Auto) 77.7 % Lymph % (Auto) 12.1 % [place] % (Auto) 9.2 % Eos % (Auto) 0.5 % Baso % (Auto) 0.1 % Immature Gran # (Auto) 0.06 H (0.00-0.02) K/uL Neut # (Auto) 10.93 H (1.4-6.5) K/uL Lymph # (Auto) 1.70 (1.2-3.4) K/uL [place] # (Auto) 1.30 H (0.11-0.59) K/uL Eos # (Auto) 0.07 (0-0.5) K/uL Baso # (Auto) 0.01 (0-0.2) K/uL Sodium 141 (136-145) mmol/L Potassium 4.1 (3.5-5.1) mmol/L Chloride 110 H (98-107) mmol/L Carbon Dioxide 27 (21-32) mmol/L Anion Gap 4.0 (3-11) BUN 15 D (7-18) mg/dl Creatinine 0.76 (0.6-1.4) mg/dl Est Cr Clr Drug Dosing 132.1 ml/min Est GFR ( Amer) 128.6 Est GFR (Non-Af Amer) 111.0 BUN/Creatinine Ratio 20.0 (10-20) Glucose 110 H (70-99) mg/dl POC Glucose (70-99) Lactate 1.3 (0.4-2.0) mmol/L Calcium 8.7 (8.5-10.1) mg/dl Magnesium 2.2 (1.8-2.4) mg/dl 09/10/19 Range/Units 23:02 WBC (4.8-10.8) K/uL RBC (4.7-6.1) M/uL Hgb (14.0-18.0) g/dL Hct (42-52) % MCV (80-100) fL MCH (25-34) pg MCHC (32-36) g/dL RDW Std Deviation (36.4-46.3) fL RDW Coeff of Kota (11.5-14.5) % Plt Count (130-400) K/uL MPV (7.4-10.4) fL Immature Gran % (Auto) % Neut % (Auto) % Lymph % (Auto) % [place] % (Auto) % Eos % (Auto) % Baso % (Auto) % Immature Gran # (Auto) (0.00-0.02) K/uL Neut # (Auto) (1.4-6.5) K/uL Lymph # (Auto) (1.2-3.4) K/uL [place] # (Auto) (0.11-0.59) K/uL Eos # (Auto) (0-0.5) K/uL Baso # (Auto) (0-0.2) K/uL Sodium (136-145) mmol/L Potassium (3.5-5.1) mmol/L Chloride (98-107) mmol/L Carbon Dioxide (21-32) mmol/L Anion Gap (3-11) BUN (7-18) mg/dl Creatinine (0.6-1.4) mg/dl Est Cr Clr Drug Dosing ml/min Est GFR ( Amer) Est GFR (Non-Af Amer) BUN/Creatinine Ratio (10-20) Glucose (70-99) mg/dl POC Glucose (70-99) Lactate 2.6 H* (0.4-2.0) mmol/L Calcium (8.5-10.1) mg/dl Magnesium (1.8-2.4) mg/dl Medications Administered Current Inpatient Medications Acetaminophen (Tylenol) 650 mg PO Q6H [facility] Stop: 10/11/19 19:59 Last Admin: 09/11/19 20:02 Dose: 650 mg Documented by: Dextrose (Dextrose 50%) 25 - 50 ml IV UD PRN; Protocol PRN Reason: Hypoglycemia Protocol Stop: 10/10/19 06:10 Doxycycline Hyclate (Vibramycin) 100 mg PO BID [facility] Stop: 09/17/19 20:59 Last Admin: 09/11/19 20:03 Dose: 100 mg Documented by: Enoxaparin Sodium (Lovenox) 40 mg SQ QAM [facility] Stop: 10/10/19 08:59 Last Admin: 09/11/19 07:44 Dose: Not Given Documented by: Glucagon (Glucagen) 1 mg SQ UD PRN; Protocol PRN Reason: Hypoglycemia Protocol Stop: 10/10/19 06:10 Glucose (Glucose 40%) 15 - 30 gm PO UD PRN; Protocol PRN Reason: Hypoglycemia Protocol Stop: 10/10/19 06:10 Glucose (Dex4 Glucose) 4 - 8 tabs PO UD PRN; Protocol PRN Reason: Hypoglycemia Protocol Stop: 10/10/19 06:10 Guaifenesin (Mucinex) 600 mg PO Q12 [facility] Stop: 10/11/19 20:59 Last Admin: 09/11/19 20:03 Dose: 600 mg Documented by: Promethazine HCl 12.5 mg/ (Sodium Chloride) 50.5 mls @ 202 mls/hr IV Q6H PRN PRN Reason: Nausea And Vomiting Stop: 10/10/19 01:47 Lorazepam (Ativan) 0.5 mg in 1 mls @ 1 mls/min IV Q4H PRN PRN Reason: Anxiety/Agitation Stop: 10/10/19 01:47 Insulin Aspart (Novolog Flexpen) 0 units SC ACHS [facility] Stop: 10/10/19 06:14 Last Admin: 09/11/19 17:04 Dose: Not Given Documented by: Insulin Glargine (Lantus Solostar Pen) 5 units SQ DAILY [facility] Stop: 10/11/19 08:59 Last Admin: 09/11/19 08:31 Dose: Not Given Documented by: Lidocaine (Lidoderm 5%) 1 patch TD HS [facility] Stop: 10/11/19 19:29 Last Admin: 09/11/19 20:01 Dose: 1 patch Documented by: Miscellaneous (Carbohydrates For Hypoglycemia) 15 - 30 gm PO UD PRN PRN Reason: Hypoglycemia Protocol Stop: 10/10/19 06:10 Miscellaneous (Remove Lidoderm Patch) 1 ea N/A QAM [facility] Stop: 10/12/19 08:59 Oxycodone HCl (Roxicodone Immediate Rel) 5 mg PO Q4H PRN PRN Reason: Pain Stop: 09/24/19 01:47 Prednisone (Prednisone) 40 mg PO DAILY [facility] Stop: 10/10/19 08:59 Last Admin: 09/11/19 07:43 Dose: 40 mg Documented by:
[2019-09-12] MEDS: ACETAMINOPHEN 325 MG TAB PO SCH ×3 (01:43→13:28)
[2019-09-12] MEDS: guaiFENesin 600 MG TABCR PO SCH (08:10)
[2019-09-12] MEDS: predniSONE 20 MG TAB PO SCH (08:10)
[2019-09-12] MEDS: DOXYCYCLINE HYCLATE 100 MG CAP PO SCH (08:10)
[2019-09-12] MEDS: ENOXAPARIN INJ 40 MG/0.4 ML SYR SQ SCH (08:10)
[2019-09-12] MEDS: INSULIN ASPART 100 UNITS/ML 3 ML PEN SC SCH ×2 (09:12→11:37)
[2019-09-12] MEDS ORDERED: ALBUT/IPRATROP 3MG/0.5MG NEB 3 ML VIAL NEB ONE ×2 (09:12→13:30)
[2019-09-12] MEDS: INSULIN GLARGINE SOLOSTAR 100 UNITS/ML 3 ML PEN SQ SCH (09:13)
--- NOTE | 2019-09-12 13:53 | Discharge Summary ---
Date of Service September 12, 2019 Admission HPI Per Admitting Provider History obtained from patient and records. Medical history significant for scoliosis status post surgery. Recent confinement June 2016 for sepsis secondary to pneumonia. 2 weeks ago, patient noted sinus/chest congestion, cough productive of greenish sputum. Patient seen at PCPs office. No pneumonia on x-ray. Patient prescribed azithromycin, prednisone course, albuterol inhaler for complicated bronchitis. Improved symptoms. Patient went out hunting few days ago. He noted recurrence of bronchitis symptoms. Denies aspiration. Seen at PCPs office. Prescribed Augmentin, prednisone course. Worsening cough, S OB, accompanied by left-sided pleuritic chest pain. At the ER, O2 sats noted to be 80s on room air. Patient received Solu-Medrol and neb treatment for bronchitis. 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, landscaping contractor Admission Exam Per Admitting Provider GENERAL: Slightly anxious, tremulous, minimal respiratory distress SKIN: Normal color, warm HEENT: Partial alopecia, pink palpebral conjunctivae, no ptosis, dry buccal mucosa NECK : Supple, no tenderness CHEST : Decreased breath sounds, sternal depression, no tenderness HEART : Tachycardic, no obvious murmurs ABDOMEN: Some distention, nontender EXTREMITIES : No LE swelling/tenderness, no other conspicuous deformities noted NEUROLOGIC : Coherent, no facial asymmetry, no other gross focality Principal Diagnosis SIRS, Acute hypoxic resp. failure due to recurrent acute bronchitis Discharge Exam ambulating, breathing comfortably on room air, in NAD Constitutional well developed and well nourished; no acute distress Eyes PERRL, conjunctivae normal, anicteric sclerae EOM intact bilaterally ENMT external ear and nose normal, oropharynx normal Neck trachea midline, no thyromegaly normal visual inspection Respiratory normal respiratory effort; no respiratory distress, no retractions and does not use accessory muscles Auscultation: + diminished lung sounds (b/l (but much improved from previous exam)); no crackles, no rhonchi and no wheezes Cardiovascular RRR, no murmur, no edema Heart Sounds: normal S1 and normal S2 Extremities: no edema Chest (Breasts) Chest: + abnormal inspection of chest Gastrointestinal (Abdomen) Inspection/Auscultation: normal bowel sounds Percussion/Palpation: abdomen soft; abdomen nontender and no guarding Musculoskeletal Head/Neck/Chest: normocephalic, head atraumatic and neck supple Extremities: extremities normal to inspection and strength 5/5 throughout Skin no rashes, warm and dry Neurologic PERRL, EOMI, accommodation nl, no face palsy, no dysarthria moves all extremities; no focal motor deficits Speech / Cognition: normal speech Psychiatric A+Ox3, euthymic affect Genitourinary no CVA tenderness Lymphatic no cervical or axillary lymphadenopathy Discharge Data Allergies Allergy/AdvReac Type Severity Reaction Status Date / Time No Known Allergies Allergy Unverified 09/09/19 22:09 Consultations 09/09/19 23:01 ED Decision to Admit Stat Ordered Studies 09/09/19 23:15 CT angio chest PE protocol Urgent FINDINGS: Normal caliber thoracic aorta with no evidence for dissection. The heart is normal in size. No pleural or pericardial effusions. No filling defects within the pulmonary arteries to suggest pulmonary embolus. No mediastinal or hilar lymphadenopathy. Normal esophagus. Limited views of the upper abdomen demonstrate a normal liver, spleen, and adrenal glands. Scoliosis with thoracic spinal Bravo rods are again noted. Pectus excavatum deformity remains unchanged. No fractures within the visualized osseous structures. No pneumothorax. The central airways are patent. Stable linear scarlike densities within the right anterior lung. No new focal lung consolidations to suggest pneumonia. IMPRESSION: 1. No evidence for pulmonary embolus. 2. Additional stable findings as described above. CXR (09/09/2019) IMPRESSION: 1. No active disease in the chest 2. Scoliosis status post spinal rodding 3. Areas of increased attenuation within the right upper lung zone and left midlung zone, likely related to overlying chest wall attenuation. Hospital Course (1) Severe sepsis: SIRS plus lactic acid elevation plus hypoxemia secondary to recurrent acute bronchitis Acute hypoxic resp. failure d/t recurrent acute bronchitis Failed outpatient treatment Initially desat. to 80%, now no need for suppl. O2 Cont. monitor on telemetry Cont. Doxycyline BID, DuoNebs, prednisone Add Guaifenesin Clinically much improved Ribcage tenderness (from coughing) - will provide lidocaine patch, tylenol History scoliosis status post surgery Situational hypertension - cont. to monitor Total Time Total Time Spent Total Time Spent (In Minutes): 40 Total Time Includes: Examination of the Patient, Discharge Planning, Medication Reconciliation and Communication With Other Providers Discharge Plan Discharge Items Patient Disposition: Home - Self-Care Reason For Visit: RESPIRATORY FAILURE Discharge Diagnosis: Recurrent acute bronchitis, hypoxemia Activity: As commented below Activity Comment: as tolerated, AVOID CLAUDIA, HOT or very COLD ENVIRONMENT Non-emergency contact: Primary Care Provider Call non-emergency contact if: you have any medication questions and your sy mptoms worsen Follow-up/Referrals: Yinka Hoskins MD [Primary Care Provider] - Diet: Heart Healthy Addtl Attending Provider Instructions: You will need to follow up with your primary care provider within 1 week of discharge. Take antibiotic, doxycycline, for next 6 days. Take prednisone 40 mg for next 4 days, then 30 mg for 3 days, then 20 mg for 3 days, then 10 mg for 3 days. Continue using your inhaler as prescribed. Continue using spirometer, about every hour for next several days. Continue taking guaifenesin for next 7 days. For pain, use Tylenol 500mg-1000 mg 3 times a day, max dose 3000-3,500 mg a day. You can also use aleve/ibuprofen 200-400 mg every 4-6 hrs as needed (for next couple of days). Continue using lidocaine patch (Salonpas) for next couple of days as well. Pending Studies at Discharge: No Stand-Alone Forms: My [facility], Smoking Cessation Medications and DC Order Prescriptions: New prednisone 10 mg tablet 10 mg PO DAILY Qty: 18 RF: 0 Continued acetaminophen [Tylenol Extra Strength] 500 mg Tablet 1,000 mg PO Q6H PRN (Reason: Pain) RF: 0 albuterol sulfate 90 mcg/actuation Hfa Aerosol Inhaler 2 puff INHALATION Q4 PRN (Reason: Wheezing) RF: 0 Discontinued Mucinex DM 30-600 mg Tablet Extended Release 12 Hr 1 tab PO Q12H PRN (Reason: Cough) RF: 0 amoxicillin-pot clavulanate [Augmentin] 875-125 mg Tablet 1 tab PO Q12H RF: 0 Discharge Orders: Discharge Order (Routine); Ordered 09/12/19 Ordered By: Andres Davis Admission Data Admit Date/Time: 09/10/19 00:49 Attending Provider: Andres Davis Admit Provider: Karthik Crandall Primary Care Provider: Yinka Hoskins Other Providers: Karthik Crandall Other Interventions: Discharge Summary Assessment (RN) Last Done: 09/12/19 13:57 DC Date/Time DO NOT enter until pt leaves facility: 09/12/19 14:26
== END 2019-09-12 14:26 | disposition home or self-care (01) | DRG 871 ==
LOC: ED 20:38 → 2N 09-10 00:49

== ENCOUNTER 2019-10-14 08:12 | Observation (INO) ==
[2019-10-14] MEDS ORDERED: ALBUT/IPRATROP 3MG/0.5MG NEB 3 ML VIAL INH STA (08:39)
[2019-10-14] MEDS ORDERED: methylPREDNISolone 125 MG/2 ML VIAL IV STA (08:39)
[2019-10-14] MEDS ORDERED: MAGNESIUM SULFATE / D5W 1 GM/100 ML BAG IV ONE (08:45)
[2019-10-14] MEDS ORDERED: SODIUM CHLORIDE 0.9% 1000ML 1,000 ML IV SCH (08:45)
[2019-10-14 08:48] LABS: Basophils # (auto) 0.04 K/uL (0-0.2); Basophils % (auto) 0.4 %; Eosinophils # (auto) 0.61 K/uL (0-0.5); Hematocrit (blood only) 47.3 % (42-52); Hemoglobin 16.2 g/dL (14.0-18.0); Immature Granulocytes # (auto) 0.07 K/uL (0.00-0.02); Immature Granulocytes % (auto) 0.7 %; Lymphocytes # (auto) 1.12 K/uL (1.2-3.4); Mean Corpuscular Hemoglobin 32.5 pg (25-34); Mean Corpuscular Hgb Conc 34.2 g/dL (32-36); Mean Platelet Volume 9.2 fL (7.4-10.4); Monocytes # (auto) 0.88 K/uL (0.11-0.59); Monocytes % (auto) 8.6 %; Neutrophils # (auto) 7.46 K/uL (1.4-6.5); Neutrophils % (auto) 73.3 %; Platelet Count 246 K/uL (130-400); RDW Coefficient of Variation 12.4 % (11.5-14.5); RDW Standard Deviation 42.5 fL (36.4-46.3); Red Blood Count 4.98 M/uL (4.7-6.1); White Blood Count 10.18 K/uL (4.8-10.8)
[2019-10-14] MEDS ORDERED: ALBUT/IPRATROP 3MG/0.5MG NEB 3 ML VIAL NEB ONE (08:57)
[2019-10-14 09:01] LABS: Partial Thromboplastin Ratio 0.9; Prothrombin Time 10.4 Seconds (9.0-12.0)
--- NOTE | 2019-10-14 09:02 | XRay Report ---
XR chest 1V portable CLINICAL HISTORY: Dyspnea COMPARISON STUDY: Chest radiograph and chest CT September 09, 2019. FINDINGS: Scoliosis hardware is partially imaged. There is scoliosis and bilateral chest wall deformi ty which is chronic. The appearance of the chest is unchanged. There is no consolidation or evidence for pulmonary edema. Cardiomediastinal silhouette is stable. No pneumothorax or pleural effusion is n oted. IMPRESSION: No acute cardiopulmonary findings. No change in appearance of the chest. ACT 112: Negative or not required by law. Electronically signed by: Reese Zuleta M.D. 10/14/2019 9:01 AM
[2019-10-14 09:05] LABS: Alanine Aminotransferase 30 U/L (12-78); Albumin Level 4.2 gm/dl (3.4-5.0); Aspartate Aminotransferase 15 U/L (15-37); BUN Creatinine Ratio 9.5 (10-20); Blood Urea Nitrogen 8 mg/dl (7-18); Calcium 9.9 mg/dl (8.5-10.1); Carbon Dioxide 28 mmol/L (21-32); Chloride 104 mmol/L (98-107); Creatinine Clr Calc Pharmacy 121.7 ml/min; Est GFR (African American) 122.8; Glucose 109 mg/dl (70-99); Magnesium 2.3 mg/dl (1.8-2.4); Potassium 3.8 mmol/L (3.5-5.1); Sodium 138 mmol/L (136-145)
[2019-10-14 09:09] LABS: Albumin Globulin Ratio 1.1 (0.9-2); Alkaline Phosphatase 188 U/L (45-117); Globulin 3.8 gm/dl (2.5-4.0); Troponin I < 0.015 ng/ml (0-0.045)
[2019-10-14 09:11] LABS: Base Excess VBG 0.6 mEq/L; HCO3 VBG 28 mmol/L; PCO2 VBG 54 mmHg (38-50); PO2 VBG 31 mmHg; pH VBG 7.33 (7.36-7.41)
[2019-10-14 09:19] LABS: Oxygen Saturation VBG < 60.0 %
[2019-10-14 09:59] LABS: Influenza A virus by PCR Neg for Influ A (Neg); Influenza B virus by PCR Neg for Influ B (Neg)
--- NOTE | 2019-10-14 10:24 | Electrocardiogram Report ---
Test Reason : Blood Pressure : / mmHG Vent. Rate : 094 BPM Atrial Rate : 094 BPM P-R Int : 116 ms QRS Dur : 102 ms QT Int : 362 ms P-R-T Axes : 080 024 091 degrees QTc Int : 452 ms Poor data quality, interpretation may be adversely affected Normal sinus rhythm RSR' or QR pattern in V1 suggests right ventricular conduction delay Otherwise Normal ECG When compared with ECG of 09-SEP-2019 21:28, No significant change Confirmed by Lorne López ([id number]) on 10/14/2019 10:23:51 AM Referred By: REFERRED SELF Confirmed By:Lorne López
--- NOTE | 2019-10-14 10:41 | Emergency Department Note ---
History of Present Illness General Chief Complaint: Respiratory Problems Stated Complaint: LUNGS ARE TIGHT, HARD TO BREATHE Source: patient Mode of arrival: ambulatory Limitations: clinical acuity (Dyspnea) History of Present Illness Provider Complaint: shortness of breath, cough and pain with inspiration Onset (ago): day(s) (1) Severity: severe Consistency/Duration: + constant and + progressively worsening Maximum Pain Intensity: 6 Current Pain Intensity: 6 Relieved By: + nothing and + upright position Exacerbated By: + lying flat, + exertion, + movement, + coughing and + inspiration Context: + recent illness (Recent admission for acute bronchitis and sepsis due to similar symptoms.) Associated symptoms: + chest pain, + pain with inspiration, + cough, + wheezing, + sputum production and + orthopnea; no fever Treatment prior to arrival: none This 43-year-old male patient with recent history of admission for acute bronchitis, respiratory distress, and sepsis presents to the emergency department today, ambulatory, with complaints of wheezing, cough, and dyspnea. The patient states the shortness of breath began yesterday at approximately 5 AM and has been progressively worsening. He does report a cough with sputum production. He has been trying an albuterol inhaler without relief. He states he has noticed a rash on his back for the past 3 days, but denies any itchiness, pain, or discharge. He denies any fever. He describes a tight feeling in his chest, worse with inspiration. He denies any history of asthma or COPD. He does have scoliosis and pectus excavatum. The patient has not seen any medical providers recently for the symptoms. He has not been on any antibiotics or steroids since his hospital admission. He denies any weakness or trauma. Related Data Home oxygen amount: none Home Medications Home Medications Medication Instructions Recorded Confirmed Type albuterol sulfate 2 puff INHALATION Q4 PRN 09/09/19 10/14/19 History pseudoephedrine-guaifenesin 1 tab PO Q12H PRN 10/14/19 10/14/19 History [Mucinex D] Allergies Allergy/AdvReac Type Severity Reaction Status Date / Time No Known Allergies Allergy Unverified 10/14/19 09:15 Past Med/Surg History Medical History Pectus excavatum (Chronic) Scoliosis Surgical History History of spinal fusion for scoliosis Family History Other Cancer Diabetes Social History Preferred Language: Comoran Communication Ability: Effective Carton Counter Feeder Required: No Beliefs That Will Affect Care: None Current Living Situation: Parent Other Information That Helps Us Care for You: No Feels Safe at Home: Yes Safety Concerns: Feels Safe At This Time Smoking Status: Never smoker Tobacco Type: smokeless tobacco ; Do You Dip or Chew Tobacco: No ; Second Hand Exposure: No ; Tobacco Cessation Education Requested by Patient: No Hx Alcohol Use: Yes Alcohol type: beer Alcohol Intake Frequency Comment: 2-3 / night Hx Substance Use: No Review of Systems A total of 10 systems reviewed and were otherwise negative Physical Exam Vital Signs: Vital Signs - 24 hr 10/14/19 08:18 10/14/19 08:30 10/14/19 08:48 Temperature 36.7 C Temperature Source Oral Pulse Rate 103 H Pulse Rate [Left F chucky] 98 H 104 H Respiratory Rate 22 20 22 Respiratory Effort / Characteristics Spontaneous Spontaneous Blood Pressure 197/79 H Blood Pressure [Ri ght Arm] 158/97 H Blood Pressure Ann-Marie n 118 Blood Pressure Ann-Marie n [Right Arm] 117 Pulse Oximetry 95 97 93 Oxygen Delivery Me thod Room Air Room Air Room Air Oxygen Flow Rate Sepsis Recent Feve r Within 48 Hours No Sepsis New/Unexpla ined Change in Men emiliano Status No Sepsis Action Take n by Nursing No Action Required 10/14/19 08:59 10/14/19 09:20 10/14/19 10:30 Temperature Temperature Source Pulse Rate Pulse Rate [Left F chucky] 101 H 102 H 122 H Respiratory Rate 20 16 20 Respiratory Effort / Characteristics Spontaneous Blood Pressure Blood Pressure [Ri ght Arm] 138/82 145/79 H Blood Pressure Ann-Marie n Blood Pressure Ann-Marie n [Right Arm] 100 101 Pulse Oximetry 95 98 95 Oxygen Delivery Me thod Room Air Nebulizer Room Air Oxygen Flow Rate 8 Sepsis Recent Feve r Within 48 Hours Sepsis New/Unexpla ined Change in Men emiliano Status Sepsis Action Take n by Nursing Physical Exam: VITALS: Vitals are noted on the nurse's note and reviewed by myself. Vital signs stable. GENERAL: This is a 43-year-old white male, diaphoretic, increased work of breathing, anxious appearing. The patient is sitting upright due to his difficulty breathing. SKIN: The skin was without rashes, erythema, edema, or bruising. There is no tenting of the skin. Capillary refill less than 2 seconds. HEAD: Normocephalic atraumatic. EARS: External auditory canals clear, tympanic membranes pearly negrete without erythema or effusion bilaterally. EYES: Pupils equal round and reactive to light and accommodation. Conjunctivae without injection, sclerae without icterus. NOSE: Patent, turbinates without inflammation or discharge. No sinus tenderness. MOUTH: Mucous membranes moist. Tonsils are not enlarged. Pharynx without erythema or exudate. Uvula midline. Airway patent. Tongue does not deviate. NECK: Supple without nuchal rigidity. No lymphadenopathy. Cervical spine is nontender. HEART: Regular rate and rhythm without murmurs gallops or rubs. LUNGS: Diffusely diminished breath sounds as with wheezing and rhonchi throughout. Positive retractions and accessory muscle use. ABDOMEN: Positive bowel sounds x 4. Normal tympanic percussion. Soft, nontender, without masses or organomegaly. Burnett sign negative. No guarding or rebound tenderness. No CVA tenderness bilaterally. MUSCULOSKELETAL: No muscle atrophy, erythema, or edema noted. Full range of motion without joint tenderness in all extremities. No tenderness to palpation. NEURO: Patient was alert and oriented to person place and time. No focal neurological deficits. Course The patient was seen and evaluated as above. IV access obtained, labs drawn. Patient medicated with IV Solu-Medrol, DuoNeb, IV fluids, and 1 g magnesium sulfate. I discussed the case with my attending physician. Imaging performed and reviewed by myself and radiologist as above. Patient was reassessed. Lung sounds somewhat better, but continued to be extremely diminished with rhonchi and wheezing. Patient given 1 hour DuoNeb treatment. Labs reviewed by myself. I discussed the findings with the patient at bedside. He was again reassessed. Some improvement, but continued diminished breath sounds And increased work of breathing. I did recommend admission. The patient was agreeable. I discussed the case with Rosenda Kenney PA-C with [facility]. She did agree to see and evaluate the patient. Please see hospitalist dictation regarding ongoing management and care of this patient. Administered Medications Levalbuterol HCl (Xopenex 0.63 Mg/3 Ml Neb) 0.63 mg NEB Q6R ERNIE Stop: 11/13/19 14:00 Last Admin: 10/14/19 15:16 Dose: 0.63 mg Documented by: [id number] Discontinued Medications Albuterol (Duoneb) 3 ml INH NOW STA Stop: 10/14/19 08:40 Last Admin: 10/14/19 08:48 Dose: 3 ml Documented by: [id number] Albuterol (Duoneb) 12 ml NEB ONE ONE Stop: 10/14/19 08:58 Last Admin: 10/14/19 08:59 Dose: 12 ml Documented by: [id number] Sodium Chloride (Nss 1000ml) 1,000 mls @ 999 mls/hr IV .Q1H1M ERNIE Stop: 10/14/19 09:45 Last Infusion: 10/14/19 10:18 Dose: 0 mls/hr Documented by: [id number] Admin: 10/14/19 09:18 Dose: 999 mls/hr Documented by: [id number] Magnesium Sulfate/Dextrose (Magnesium Sulfate / D5w) 1 gm in 100 mls @ 100 mls/hr IV ONE ONE Stop: 10/14/19 09:44 Last Infusion: 10/14/19 10:18 Dose: 0 mls/hr Documented by: [id number] Admin: 10/14/19 09:17 Dose: 100 mls/hr Documented by: [id number] Methylprednisolone (Solumedrol) 125 mg IV NOW STA Stop: 10/14/19 08:40 Last Admin: 10/14/19 08:53 Dose: 125 mg Documented by: [id number] Medical Decision Making Differential Diagnosis + acute exacerbation of chronic obstructive airways disease, + congestive heart failure, + community acquired pneumonia, + asthma with exacerbation, + pulmonary embolism, + COPD, + bronchitis, + pneumothorax, + pneumonia, + pleural effusion, + CHF, + ACS and + aspiration Home Medications Current Medication List: was personally reviewed by me Laboratory Data Attestation: I reviewed the patient's lab results. No leukocytosis, anemia, thrombocytopenia. Renal, hepatic function, and electrolytes without significant abnormality. Coags normal. Troponin negative. VBG pH 7.33, PCO2 54. Lactate 1.5. Procalcitonin negative. Negative influenza testing. Negative urinalysis. Result diagrams: 10/14/19 08:39 10/14/19 08:39 Lab Results 10/14/19 10/14/19 10/14/19 Range/Units 08:39 08:39 08:39 WBC 10.18 (4.8-10.8) K/uL RBC 4.98 (4.7-6.1) M/uL Hgb 16.2 (14.0-18.0) g/dL Hct 47.3 (42-52) % MCV 95.0 (80-100) fL MCH 32.5 (25-34) pg MCHC 34.2 (32-36) g/dL RDW Std Deviation 42.5 (36.4-46.3) fL RDW Coeff of Kota 12.4 (11.5-14.5) % Plt Count 246 (130-400) K/uL MPV 9.2 (7.4-10.4) fL Immature Gran % (Auto) 0.7 % Neut % (Auto) 73.3 % Lymph % (Auto) 11.0 % [place] % (Auto) 8.6 % Eos % (Auto) 6.0 % Baso % (Auto) 0.4 % Immature Gran # (Auto) 0.07 H (0.00-0.02) K/uL Neut # (Auto) 7.46 H (1.4-6.5) K/uL Lymph # (Auto) 1.12 L (1.2-3.4) K/uL [place] # (Auto) 0.88 H (0.11-0.59) K/uL Eos # (Auto) 0.61 H (0-0.5) K/uL Baso # (Auto) 0.04 (0-0.2) K/uL PT 10.4 (9.0-12.0) Seconds INR 1.0 (0.9-1.1) APTT 24.0 (21.0-31.0) Seconds PTT Ratio 0.9 VBG pH (7.36-7.41) VBG pCO2 (38-50) mmHg VBG pO2 mmHg VBG HCO3 mmol/L VBG O2 Saturation % VBG Base Excess mEq/L Barometric Pressure mm/Hg Sodium 138 (136-145) mmol/L Potassium 3.8 (3.5-5.1) mmol/L Chloride 104 (98-107) mmol/L Carbon Dioxide 28 (21-32) mmol/L Anion Gap 6.0 (3-11) BUN 8 (7-18) mg/dl Creatinine 0.85 (0.6-1.4) mg/dl Est Cr Clr Drug Dosing 121.7 ml/min Est GFR ( Amer) 122.8 Est GFR (Non-Af Amer) 106.0 BUN/Creatinine Ratio 9.5 L (10-20) Glucose 109 H (70-99) mg/dl Lactate (0.4-2.0) mmol/L Calcium 9.9 (8.5-10.1) mg/dl Magnesium 2.3 (1.8-2.4) mg/dl Total Bilirubin 1.0 (0.2-1) mg/dl AST 15 (15-37) U/L ALT 30 (12-78) U/L Alkaline Phosphatase 188 H (45-117) U/L Troponin I < 0.015 (0-0.045) ng/ml Total Protein 8.0 (6.4-8.2) gm/dl Albumin 4.2 (3.4-5.0) gm/dl Globulin 3.8 (2.5-4.0) gm/dl Albumin/Globulin Ratio 1.1 (0.9-2) Procalcitonin (0-0.5) ng/ml Urine Color Urine Appearance (Clear) Urine pH (4.5-7.5) Ur Specific Collins (1.000-1.030) Urine Protein (Negative) Urine Glucose (UA) (Negative) Urine Ketones (Negative) Urine Blood (Negative) Urine Nitrite (Negative) Urine Bilirubin (Negative) Urine Urobilinogen (Negative) Ur Leukocyte Esterase (Negative) Influenza Type A (PCR) (Neg) Influenza Type B (PCR) (Neg) 10/14/19 10/14/19 10/14/19 Range/Units 08:39 08:58 08:58 WBC (4.8-10.8) K/uL RBC (4.7-6.1) M/uL Hgb (14.0-18.0) g/dL Hct (42-52) % MCV (80-100) fL MCH (25-34) pg MCHC (32-36) g/dL RDW Std Deviation (36.4-46.3) fL RDW Coeff of Kota (11.5-14.5) % Plt Count (130-400) K/uL MPV (7.4-10.4) fL Immature Gran % (Auto) % Neut % (Auto) % Lymph % (Auto) % [place] % (Auto) % Eos % (Auto) % Baso % (Auto) % Immature Gran # (Auto) (0.00-0.02) K/uL Neut # (Auto) (1.4-6.5) K/uL Lymph # (Auto) (1.2-3.4) K/uL [place] # (Auto) (0.11-0.59) K/uL Eos # (Auto) (0-0.5) K/uL Baso # (Auto) (0-0.2) K/uL PT (9.0-12.0) Seconds INR (0.9-1.1) APTT (21.0-31.0) Seconds PTT Ratio VBG pH 7.33 L (7.36-7.41) VBG pCO2 54 H (38-50) mmHg VBG pO2 31 mmHg VBG HCO3 28 mmol/L VBG O2 Saturation < 60.0 % VBG Base Excess 0.6 mEq/L Barometric Pressure 730.5 mm/Hg Sodium (136-145) mmol/L Potassium (3.5-5.1) mmol/L Chloride (98-107) mmol/L Carbon Dioxide (21-32) mmol/L Anion Gap (3-11) BUN (7-18) mg/dl Creatinine (0.6-1.4) mg/dl Est Cr Clr Drug Dosing ml/min Est GFR ( Amer) Est GFR (Non-Af Amer) BUN/Creatinine Ratio (10-20) Glucose (70-99) mg/dl Lactate 1.5 (0.4-2.0) mmol/L Calcium (8.5-10.1) mg/dl Magnesium (1.8-2.4) mg/dl Total Bilirubin (0.2-1) mg/dl AST (15-37) U/L ALT (12-78) U/L Alkaline Phosphatase (45-117) U/L Troponin I (0-0.045) ng/ml Total Protein (6.4-8.2) gm/dl Albumin (3.4-5.0) gm/dl Globulin (2.5-4.0) gm/dl Albumin/Globulin Ratio (0.9-2) Procalcitonin < 0.05 (0-0.5) ng/ml Urine Color Urine Appearance (Clear) Urine pH (4.5-7.5) Ur Specific Collins (1.000-1.030) Urine Protein (Negative) Urine Glucose (UA) (Negative) Urine Ketones (Negative) Urine Blood (Negative) Urine Nitrite (Negative) Urine Bilirubin (Negative) Urine Urobilinogen (Negative) Ur Leukocyte Esterase (Negative) Influenza Type A (PCR) (Neg) Influenza Type B (PCR) (Neg) 10/14/19 10/14/19 Range/Units 09:00 10:35 WBC (4.8-10.8) K/uL RBC (4.7-6.1) M/uL Hgb (14.0-18.0) g/dL Hct (42-52) % MCV (80-100) fL MCH (25-34) pg MCHC (32-36) g/dL RDW Std Deviation (36.4-46.3) fL RDW Coeff of Kota (11.5-14.5) % Plt Count (130-400) K/uL MPV (7.4-10.4) fL Immature Gran % (Auto) % Neut % (Auto) % Lymph % (Auto) % [place] % (Auto) % Eos % (Auto) % Baso % (Auto) % Immature Gran # (Auto) (0.00-0.02) K/uL Neut # (Auto) (1.4-6.5) K/uL Lymph # (Auto) (1.2-3.4) K/uL [place] # (Auto) (0.11-0.59) K/uL Eos # (Auto) (0-0.5) K/uL Baso # (Auto) (0-0.2) K/uL PT (9.0-12.0) Seconds INR (0.9-1.1) APTT (21.0-31.0) Seconds PTT Ratio VBG pH (7.36-7.41) VBG pCO2 (38-50) mmHg VBG pO2 mmHg VBG HCO3 mmol/L VBG O2 Saturation % VBG Base Excess mEq/L Barometric Pressure mm/Hg Sodium (136-145) mmol/L Potassium (3.5-5.1) mmol/L Chloride (98-107) mmol/L Carbon Dioxide (21-32) mmol/L Anion Gap (3-11) BUN (7-18) mg/dl Creatinine (0.6-1.4) mg/dl Est Cr Clr Drug Dosing ml/min Est GFR ( Amer) Est GFR (Non-Af Amer) BUN/Creatinine Ratio (10-20) Glucose (70-99) mg/dl Lactate (0.4-2.0) mmol/L Calcium (8.5-10.1) mg/dl Magnesium (1.8-2.4) mg/dl Total Bilirubin (0.2-1) mg/dl AST (15-37) U/L ALT (12-78) U/L Alkaline Phosphatase (45-117) U/L Troponin I (0-0.045) ng/ml Total Protein (6.4-8.2) gm/dl Albumin (3.4-5.0) gm/dl Globulin (2.5-4.0) gm/dl Albumin/Globulin Ratio (0.9-2) Procalcitonin (0-0.5) ng/ml Urine Color Yellow Urine Appearance Clear (Clear) Urine pH 5.0 (4.5-7.5) Ur Specific Collins 1.007 (1.000-1.030) Urine Protein Negative (Negative) Urine Glucose (UA) Negative (Negative) Urine Ketones Negative (Negative) Urine Blood Negative (Negative) Urine Nitrite Negative (Negative) Urine Bilirubin Negative (Negative) Urine Urobilinogen Negative (Negative) Ur Leukocyte Esterase Negative (Negative) Influenza Type A (PCR) Neg for Influ A (Neg) Influenza Type B (PCR) Neg for Influ B (Neg) Imaging Data Radiologist's Impression: XR chest 1V portable CLINICAL HISTORY: Dyspnea COMPARISON STUDY: Chest radiograph and chest CT September 09, 2019. FINDINGS: Scoliosis hardware is partially imaged. There is scoliosis and bilateral chest wall deformity which is chronic. The appearance of the chest is unchanged. There is no consolidation or evidence for pulmonary edema. Cardiomediastinal silhouette is stable. No pneumothorax or pleural effusion is noted. IMPRESSION: No acute cardiopulmonary findings. No change in appearance of the chest. ACT 112: Negative or not required by law. Electronically signed by: Reese Zuleta M.D. 10/14/2019 9:01 AM ECG Data Attestation: I personally reviewed and interpreted this ECG as follows: Prior ECG tracings: available for review (09/09/2019) Interpretation: Normal sinus rhythm with a ventricular rate of 94 bpm. RSR prime in V1. No significant change when compared to previous. Blood Pressure Blood Pressure Findings: Elevated blood pressure Blood Pressure Disposition: elevated BP felt to be situational MDM Narrative This 43-year-old male patient presents the emergency department today, ambulatory, due to dyspnea and diffuse wheezing. The patient was using accessory muscles, had obvious retractions, and was in some distress on initial examination. Breath sounds were extremely diminished with rhonchi and wheezing. The patient symptoms somewhat improved with steroids, magnesium, and DuoNeb treatments. He was ultimately given an hour-long DuoNeb, but continued to have diminished breath sounds throughout. We did elect to admit the patient due to the increased work of breathing. The patient will be admitted [facility] for further evaluation management of the acute bronchitis. The chart was completed utilizing [employer] Speech voice recognition software. Grammatical errors, random word insertions, pronoun errors, and incomplete sentences are an occasional consequence of this system due to software limitat ions, ambient noise, and hardware issues. Any formal questions or concerns about the content, text, or information contained within the body of this dictation should be directly addressed to the provider for clarification. Impression & Plan Bronchitis with bronchospasm, Pectus excavatum Discharge Plan Visit Data *Final* Discharge Date/Time: 10/14/19 13:48 Chief Complaint: Respiratory Problems Stated Complaint: LUNGS ARE TIGHT, HARD TO BREATHE ED Provider: Neeraj Dee ED Midlevel Provider: Maryanne Dale Discharge Problem: Bronchitis with bronchospasm, Pectus excavatum Patient Disposition: Admitted As Inpatient Discharge Instructions Interventions: ED Discharge Assessment Last Done: 10/14/19 13:48
[2019-10-14 11:27] LABS: Appearance Urine Clear (Clear); Bilirubin Urine Negative (Negative); Blood Urine Negative (Negative); Color Urine Yellow; Glucose Urine UA Negative (Negative); Ketones Urine Negative (Negative); Leukocyte Esterase Urine Negative (Negative); Nitrite Urine Negative (Negative); Protein Urine Negative (Negative); Specific Gravity Urine 1.007 (1.000-1.030); Urobilinogen Urine Negative (Negative)
--- NOTE | 2019-10-14 11:31 | History & Physical Report ---
Date of Service October 14, 2019 Assessment & Plan (1) Bronchitis with bronchospasm: This is a 43-year-old male with PMH of recent admission for acute hypoxia in the setting of bronchitis who presents with cough and shortness of breath since yesterday morning. -Recent hospitalization last month for similar symptoms, treated with doxycycline and steroid taper -Afebrile, saturating 95% on room air, diffuse wheezing on exam but air movement improved following nebulizer treatment -VBG pH of 7.33 initially. No leukocytosis. VBG pH with slight acidosis at 7.33 and PCO2 of 54. Lactic acid within normal limits. Flu PCR negative. Chest x- ray without any acute cardiopulmonary findings -Xopenex neb treatments Q6HR, prednisone 40mg daily, procalcitonin pending -Consider discharge on advair inhaler -Discussed importance of improved nutrition, smoking cessation and decreased alcohol consumption for more effective healing DVT Ppx: Luis Armando pinedo, early ambulation Code status: FULL PCP: [facility] Dispo: Observation med/surg. Plan to return home once medically stable. Patient seen in collaboration with Dr. Rios. Please see addendum. History of Present Illness Chief Complaint: Cough, shortness of breath Primary Care Provider: Yinka Hoskins MD This is a 43-year-old male with PMH of recent admission for acute hypoxia in the setting of bronchitis who presents with cough and shortness of breath since yesterday morning. Patient initially developed symptoms in early September and was treated with a Z-Maksim as an outpatient before being admitted to our service at the beginning of September for acute hypoxic respiratory failure secondary to bronchitis. Was treated with doxycycline, duo nebs, prednisone taper and guaifenesin and completed doxycycline and prednisone course upon discharge. [place] better for a few weeks after that until yesterday morning, when he developed congestion and productive cough with greenish sputum as well as wheezing. Feels like "mucus gets stuck in my chest" and he cannot fully cough it up, causing pleuritic chest pain. Denies any fever or chills. No lightheadedness, visual changes, sore throat, ear pain, chest pain, nausea, vomiting, abdominal pain, dysuria, diarrhea or constipation. No appetite changes. Uses smokeless tobacco and drinks 3 beers per night. Also around many sick contacts at this time of year. Patient is afebrile and tachycardic at 103. BP slightly elevated but seems to be situational due to anxiety. No leukocytosis. VBG pH with slight acidosis at 7.33 and PCO2 of 54. Lactic acid within normal limits. Flu PCR negative. Chest x-ray without any acute cardiopulmonary findings. Allergies Allergy/AdvReac Type Severity Reaction Status Date / Time No Known Allergies Allergy Unverified 10/14/19 09:15 Home Medications Home Medications Medication Instructions Recorded Confirmed Type albuterol sulfate 2 puff INHALATION Q4 PRN 09/09/19 10/14/19 History pseudoephedrine-guaifenesin 1 tab PO Q12H PRN 10/14/19 10/14/19 History [Mucinex D] Past Med/Surg History Medical History Pectus excavatum (Chronic) Scoliosis Surgical History History of spinal fusion for scoliosis Family History Other Cancer Diabetes Social History Preferred Language: B[place]udian Communication Ability: Effective Security Guard Dispatcher Required: No Beliefs That Will Affect Care: None Current Living Situation: Parent Other Information That Helps Us Care for You: No Feels Safe at Home: Yes Safety Concerns: Feels Safe At This Time Smoking Status: Never smoker Tobacco Type: smokeless tobacco ; Do You Dip or Chew Tobacco: No ; Second Hand Exposure: No ; Tobacco Cessation Education Requested by Patient: No Hx Alcohol Use: Yes Alcohol type: beer Alcohol Intake Frequency Comment: 2-3 / night Hx Substance Use: No Review of Systems Review of Systems: At least ten systems reviewed and negative except as noted in the HPI. Physical Exam Physical Exam: General Appearance: WD/WN, vitals as above, NAD, sitting up in bed, pleasant, conversing easily Head: normocephalic, atraumatic Eyes: normal inspection, PERRL, conjunctivae normal, anicteric sclerae ENT: external ear and nose normal, oropharynx normal Neck: trachea midline, no thyromegaly normal visual inspection Respiratory: Scattered wheezes and rhonchi throughout lung collier. No wheezing. Normal insp/exp effort, no accessory muscle use Cardiovascular: tachycardic, rhythm, no murmur appreciated, normal peripheral pulses. Vessels: no JVD or carotid bruit Chest: pectus excavatum Abdomen/GI: normal bowel sounds, soft, nontender, no hepatosplenomegaly Extremities/Musculoskelatal: no cyanosis or clubbing, extremities motor strength 5/5. + Scoliosis Neurologic: PERRL, EOMI, accommodation nl, no face palsy, no dysarthria, CN's II-XI intact bilaterally and moves all extremities Psychiatric: A+Ox3, euthymic affect Skin: + maculopapular rash on neck, shoulders and forehead. Non-tender or pruritic. Normal color, warm/dry Results & Data Vital Signs (Past 12 Hours) Vital Signs Temp Pulse Pulse Resp BP BP Pulse Ox 10/14/19 10:30 122 H 20 145/79 H 95 10/14/19 09:20 102 H 16 138/82 98 10/14/19 08:59 101 H 20 95 10/14/19 08:48 104 H 22 93 10/14/19 08:30 98 H 20 158/97 H 97 10/14/19 08:18 36.7 C 103 H 22 197/79 H 95 Laboratory Results Short CBC 10/14/19 Range/Units 08:39 WBC 10.18 (4.8-10.8) K/uL Hgb 16.2 (14.0-18.0) g/dL Hct 47.3 (42-52) % Plt Count 246 (130-400) K/uL BMP 10/14/19 08:39 Sodium 138 Potassium 3.8 Chloride 104 Carbon Dioxide 28 BUN 8 Creatinine 0.85 Glucose 109 H Calcium 9.9 Cardiac Enzymes 10/14/19 Range/Units 08:39 Troponin I < 0.015 (0-0.045) ng/ml Liver Function 10/14/19 Range/Units 08:39 Total Bilirubin 1.0 (0.2-1) mg/dl AST 15 (15-37) U/L ALT 30 (12-78) U/L Alkaline Phosphatase 188 H (45-117) U/L Albumin 4.2 (3.4-5.0) gm/dl Urine 10/14/19 Range/Units 10:35 Urine Color Yellow Urine Appearance Clear (Clear) Urine pH 5.0 (4.5-7.5) Ur Specific [place] 1.007 (1.000-1.030) Urine Protein Negative (Negative) Urine Glucose (UA) Negative (Negative) Diagnostic Findings CXR: IMPRESSION: No acute cardiopulmonary findings. No change in appearance of the chest. Code Status & VTE Plan VTE Prophylaxis Plan VTE Prophylaxis will be ordered: Yes Supervising Physician Co-Signing Physician Notes HISTORY: Record reviewed. Patient interviewed and examined. Care coordinated with Rosenda Kenney PA-C. Please refer to her documentation for complete history. Briefly, 43-year-old male with history of scoliosis and pectus excavatum. Hospitalized about 1 month ago with asthmatic bronchitis. Developed cough yesterday, initially productive of thick green sputum. Cough associated with wheezing and dyspnea. Came to ED for evaluation. EXAM: General- no distress Lungs- diffuse mild-moderate wheezing; no respiratory distress Cardiovascular- RRR; no murmur; no gallop; no JVD; no pretibial edema Abdomen- + bowel sounds, soft, nontender Extremities- no cyanosis; no calf tenderness Neuro- alert, oriented Skin- warm & dry DATA: WBC 10,180. Chemistry showed normal electrolytes, BUN 8, creatinine 0.85, glucose 109. Lactate 1.5. Nasopharyngeal swab for influenza A/B PCR negative. Other lab studies as noted. Chest x-ray reviewed and demonstrated postsurgical changes, no infiltrates. EKG performed at 0850 reviewed and demonstrated normal sinus rhythm at 90 / minute, no acute changes. ASSESSMENT AND PLAN: Asthmatic bronchitis. Nasopharyngeal swab for influenza A/B PCR negative. Treat with azithromycin, prednisone, bronchodilators. Please refer to ITALO Kenney's documentation for discussion of other issues.
[2019-10-14] MEDS ORDERED: POLYETHYLENE (MIRALAX) 17 GM PACK PO PRN (14:01)
[2019-10-14] MEDS ORDERED: ALBUTEROL HFA 8 GM INHALER INH PRN (14:01)
[2019-10-14] MEDS ORDERED: ACETAMINOPHEN 325 MG TAB PO PRN (14:01)
[2019-10-14] MEDS: LEVALBUTEROL HCL 0.63 MG/3 ML NEB NEB SCH ×2 (15:16→18:59)
[2019-10-14] MEDS ORDERED: AZITHROMYCIN 250 MG TAB PO ONE (20:03)
[2019-10-14] MEDS: guaiFENesin 600 MG TABCR PO SCH (21:39)
[2019-10-15] MEDS: LEVALBUTEROL HCL 0.63 MG/3 ML NEB NEB SCH ×4 (00:51→19:16)
[2019-10-15 07:30] LABS: Hematocrit (blood only) 42.9 % (42-52); Hemoglobin 14.5 g/dL (14.0-18.0); Mean Corpuscular Hemoglobin 31.9 pg (25-34); Mean Corpuscular Hgb Conc 33.8 g/dL (32-36); Mean Corpuscular Volume 94.5 fL (80-100); Mean Platelet Volume 9.8 fL (7.4-10.4); Platelet Count 256 K/uL (130-400); RDW Coefficient of Variation 12.9 % (11.5-14.5); RDW Standard Deviation 43.8 fL (36.4-46.3); Red Blood Count 4.54 M/uL (4.7-6.1); White Blood Count 10.61 K/uL (4.8-10.8)
[2019-10-15 08:10] LABS: BUN Creatinine Ratio 16.5 (10-20); Calcium 9.6 mg/dl (8.5-10.1); Creatinine Clr Calc Pharmacy 120.3 ml/min; Est GFR (African American) 122.2; Est GFR (Non-African American) 105.5; Potassium 4.1 mmol/L (3.5-5.1)
[2019-10-15] MEDS: guaiFENesin 600 MG TABCR PO SCH ×2 (08:50→20:04)
[2019-10-15] MEDS: predniSONE 20 MG TAB PO SCH (08:50)
[2019-10-15] MEDS: AZITHROMYCIN 250 MG TAB PO SCH (08:51)
--- NOTE | 2019-10-15 17:33 | Hospitalist Progress Note ---
Date of Service October 15, 2019 Assessment & Plan (1) Bronchitis with bronchospasm: Asthmatic bronchitis - symptom has improved markedly after Neb tx /steroids This is a 43-year-old male with PMH of recent admission for acute hypoxia in the setting of bronchitis who presents with cough and shortness of breath -Recent hospitalization last month for similar symptoms, treated with doxycycline and steroid taper -no hypoxia, remains in room air -has scoliosis with limited lung capacity in left side -cont. azithromycin, prednisone, bronchodilators -will need pulmonology follow up with repeat PFT check ( last one was checked in 2016 ) -pt is a non smoker DVT Ppx: Luis Armando pinedo, early ambulation Code status: FULL PCP: [facility] Subjective Pt is sitting on the bed, eating lunch. Breathing comfortably on room air. Reports chest tightness that got worse over the past 2 days, but resolved here in the ED after receiving breathing treatments. Denies fever, chills, but reports cough and green sputum production. says he's been doing quite well after last hospital discharge and also did well during his follow up with PCP. Review of Systems Review of Systems: All systems reviewed & are unremarkable except as noted in HPI & below Constitutional: no fever, no chills and no fatigue Respiratory: + cough and + dyspnea Cardiovascular: no chest pain, no palpitations and no edema Gastrointestinal: no abdominal pain, no nausea and no vomiting Physical Exam Physical Exam: General Appearance: middle aged male sitting up in bed,in no acute distress, on room air Head: normocephalic, atraumatic Eyes: normal inspection, PERRL, EOMI, conjunctivae normal, anicteric sclerae ENT: external ear and nose normal, oropharynx normal Neck: trachea midline, no thyromegaly normal visual inspection Respiratory: CTAB. No wheezing. no rhonchi or crackles. Normal insp/exp effort, no accessory muscle use Cardiovascular: regular rhythm, no murmur appreciated, normal peripheral pulses. Vessels: no JVD or carotid bruit Chest: pectus excavatum Abdomen/GI: normal bowel sounds, soft, nontender, nondistended, no guarding Extremities/MSK: no cyanosis or clubbing, extremities motor strength 5/5.Moves all 4 extremities spontaneously. + Scoliosis Neurologic: PERRL, EOMI, accommodation nl, no face palsy, no dysarthria, CN's II-XI intact bilaterally and moves all extremities Psychiatric: A+Ox3, euthymic affect Skin: warm/dry Results & Data Vital Signs (Past 12 Hours) Vital Signs Temp Pulse Resp BP Pulse Ox 10/15/19 16:15 36.6 C 87 16 116/67 97 10/15/19 13:12 98 H 18 98 10/15/19 07:38 36.5 C 92 H 18 149/77 H 96 10/15/19 07:04 88 18 97 Laboratory Results 10/15/19 10/15/19 Range/Units 06:31 06:31 WBC 10.61 (4.8-10.8) K/uL RBC 4.54 L (4.7-6.1) M/uL Hgb 14.5 (14.0-18.0) g/dL Hct 42.9 (42-52) % MCV 94.5 (80-100) fL MCH 31.9 (25-34) pg MCHC 33.8 (32-36) g/dL RDW Std Deviation 43.8 (36.4-46.3) fL RDW Coeff of [place] 12.9 (11.5-14.5) % Plt Count 256 (130-400) K/uL MPV 9.8 (7.4-10.4) fL Sodium 138 (136-145) mmol/L Potassium 4.1 (3.5-5.1) mmol/L Chloride 106 (98-107) mmol/L Carbon Dioxide 26 (21-32) mmol/L Anion Gap 6.0 (3-11) BUN 14 D (7-18) mg/dl Creatinine 0.86 (0.6-1.4) mg/dl Est Cr Clr Drug Dosing 120.3 ml/min Est GFR ( Amer) 122.2 Est GFR (Non-Af Amer) 105.5 BUN/Creatinine Ratio 16.5 (10-20) Glucose 115 H (70-99) mg/dl Calcium 9.6 (8.5-10.1) mg/dl Medications Administered Current Inpatient Medications Acetaminophen (Tylenol) 650 mg PO Q4H PRN PRN Reason: pain/fever Stop: 11/13/19 14:00 Albuterol (Ventolin Hfa) 2 puffs INH Q4H PRN PRN Reason: Wheezing Stop: 11/13/19 14:00 Azithromycin (Zithromax) 250 mg PO QAM [facility] Stop: 10/18/19 09:01 Last Admin: 10/15/19 08:51 Dose: 250 mg Documented by: Guaifenesin (Mucinex) 1,200 mg PO Q12 [facility] Stop: 11/13/19 20:59 Last Admin: 10/15/19 08:50 Dose: 1,200 mg Documented by: Levalbuterol HCl (Xopenex 0.63 Mg/3 Ml Neb) 0.63 mg NEB Q6R [facility] Stop: 11/13/19 14:00 Last Admin: 10/15/19 13:11 Dose: 0.63 mg Documented by: Polyethylene Glycol (Miralax Powder Packet) 17 gm PO DAILY PRN PRN Reason: Constipation Stop: 11/13/19 14:00 Prednisone (Prednisone) 40 mg PO DAILY [facility] Stop: 11/14/19 08:59 Last Admin: 10/15/19 08:50 Dose: 40 mg Documented by:
[2019-10-16] MEDS: LEVALBUTEROL HCL 0.63 MG/3 ML NEB NEB SCH ×4 (00:55→19:52)
[2019-10-16 06:19] LABS: Hematocrit (blood only) 42.1 % (42-52); Hemoglobin 13.8 g/dL (14.0-18.0); Mean Corpuscular Hemoglobin 31.4 pg (25-34); Mean Corpuscular Hgb Conc 32.8 g/dL (32-36); Mean Corpuscular Volume 95.7 fL (80-100); Mean Platelet Volume 9.5 fL (7.4-10.4); Platelet Count 239 K/uL (130-400)
[2019-10-16 06:55] LABS: BUN Creatinine Ratio 26.2 (10-20); Calcium 9.1 mg/dl (8.5-10.1); Creatinine Clr Calc Pharmacy 123.2 ml/min; Est GFR (African American) 123.4; Est GFR (Non-African American) 106.5; Potassium 3.9 mmol/L (3.5-5.1)
[2019-10-16] MEDS: AZITHROMYCIN 250 MG TAB PO SCH (08:03)
[2019-10-16] MEDS: guaiFENesin 600 MG TABCR PO SCH ×2 (08:03→20:20)
[2019-10-16] MEDS: predniSONE 20 MG TAB PO SCH (08:03)
--- NOTE | 2019-10-16 11:04 | Hospitalist Progress Note ---
Date of Service October 16, 2019 Assessment & Plan (1) Bronchitis with bronchospasm: symptom has improved markedly after Neb tx /steroids This is a 43-year-old male with PMH of recent admission for acute hypoxia in the setting of bronchitis who presents with cough and shortness of breath since yesterday morning. -Recent hospitalization last month for similar symptoms, treated with doxycycline and steroid taper - cough has improved, non productive now no SOB at rest or at exertion speaking in sentences has scoliosis with limited lung capacity in left side will need pulmonology follow up with repeat PFT check ( last one was checked in 2016 ) pt is a non smoker DVT Ppx: Luis Armando pinedo, early ambulation Code status: FULL PCP: [facility] Dispo: plan to discharge home tomorrow Subjective Pt is sitting on the bed, eating lunch. Breathing comfortably on room air. sob , cough has improved markedly after breathing tx still having occasional wheeze Denies fever, chills,dry non productive cough Review of Systems Review of Systems: At least ten systems reviewed and negative except as noted in the HPI. Respiratory: + cough; no dyspnea on exertion and no wheezing Physical Exam Constitutional: WD/WN, vitals as above Eyes: PERRL, conjunctivae normal, anicteric sclerae ENMT: external ear and nose normal, oropharynx normal Neck: trachea midline, no thyromegaly Respiratory: normal respiratory effort, lungs clear to auscultation Cardiovascular: RRR, no murmur, no edema Gastrointestinal (Abdomen): normal bowel sounds, soft, nontender, no hepatosplenomegaly Musculoskeletal: no cyanosis or clubbing, extremities motor strength 5/5 Skin: no rashes, warm and dry Neurologic: PERRL, EOMI, accommodation nl, no face palsy, no dysarthria Psychiatric: A+Ox3, euthymic affect Results & Data Vital Signs (Past 12 Hours) Vital Signs Temp Pulse Resp BP Pulse Ox 10/16/19 07:26 36.6 C 89 20 120/67 95 10/16/19 06:59 81 99 10/16/19 00:55 78 16 98 10/15/19 23:50 36.9 C 97 H 16 153/85 H 95
[2019-10-17] MEDS: LEVALBUTEROL HCL 0.63 MG/3 ML NEB NEB SCH ×2 (01:12→07:39)
[2019-10-17 07:41] VITALS: O2SAT 97
[2019-10-17 08:06] VITALS: PULSE 80; TEMP 98.2
[2019-10-17] MEDS: predniSONE 20 MG TAB PO SCH (08:35)
[2019-10-17] MEDS: guaiFENesin 600 MG TABCR PO SCH (08:35)
[2019-10-17] MEDS: AZITHROMYCIN 250 MG TAB PO SCH (08:36)
--- NOTE | 2019-10-17 11:25 | Discharge Summary ---
Date of Service October 17, 2019 Admission HPI Per Admitting Provider This is a 43-year-old male with PMH of recent admission for acute hypoxia in the setting of bronchitis who presents with cough and shortness of breath since yesterday morning. Patient initially developed symptoms in early September and was treated with a Z-Maksim as an outpatient before being admitted to our service at the beginning of September for acute hypoxic respiratory failure secondary to bronchitis. Was treated with doxycycline, duo nebs, prednisone taper and guaifenesin and completed doxycycline and prednisone course upon discharge. [place] better for a few weeks after that until yesterday morning, when he developed congestion and productive cough with greenish sputum as well as wheezing. Feels like "mucus gets stuck in my chest" and he cannot fully cough it up, causing pleuritic chest pain. Denies any fever or chills. No lightheadedness, visual changes, sore throat, ear pain, chest pain, nausea, vomiting, abdominal pain, dysuria, diarrhea or constipation. No appetite changes. Uses smokeless tobacco and drinks 3 beers per night. Also around many sick contacts at this time of year. Patient is afebrile and tachycardic at 103. BP slightly elevated but seems to be situational due to anxiety. No leukocytosis. VBG pH with slight acidosis at 7.33 and PCO2 of 54. Lactic acid within normal limits. Flu PCR negative. Chest x-ray without any acute cardiopulmonary findings. Principal Diagnosis BRONCHITIS Discharge Exam Constitutional WD/WN, vitals as above Eyes PERRL, conjunctivae normal, anicteric sclerae ENMT external ear and nose normal, oropharynx normal Neck trachea midline, no thyromegaly Respiratory normal respiratory effort, lungs clear to auscultation Cardiovascular RRR, no murmur, no edema Gastrointestinal (Abdomen) normal bowel sounds, soft, nontender, no hepatosplenomegaly Musculoskeletal no cyanosis or clubbing, extremities motor strength 5/5 Skin no rashes, warm and dry Neurologic PERRL, EOMI, accommodation nl, no face palsy, no dysarthria Psychiatric A+Ox3, euthymic affect Discharge Data Allergies Allergy/AdvReac Type Severity Reaction Status Date / Time No Known Allergies Allergy Unverified 10/14/19 09:15 Consultations 10/14/19 10:48 ED Decision to Admit Stat Hospital Course (1) Bronchitis with bronchospasm: symptom has improved markedly after Neb tx /steroids This is a 43-year-old male with PMH of recent admission for acute hypoxia in the setting of bronchitis who presents with cough and shortness of breath since yesterday morning. -Recent hospitalization last month for similar symptoms, treated with doxycycline and steroid taper - does not have cough ,no hypoxia, remains in room air no GARCIA , or SOB stable to be discharged home today has scoliosis with limited lung capacity in left side will need pulmonology follow up with repeat PFT check ( last one was checked in 2016 ) pt is a non smoker DVT Ppx: Luis Armando pinedo, early ambulation Code status: FULL PCP: [facility] Dispo: stable to be discharged home today Total Time Total Time Spent Total Time Spent (In Minutes): approx 35 mins Total Time Includes: Examination of the Patient, Discharge Planning and Medication Reconciliation Discharge Plan Discharge Items Patient Disposition: Home - Self-Care Reason For Visit: BRONCHITIS Discharge Diagnosis: BRONCHITIS Activity: Resume your previous activity Non-emergency contact: Primary Care Provider Call non-emergency contact if: you have any medication questions Follow-up/Referrals: Gabriel Harmon MD [Physician] - (PULMONOLOGY FOLLOW UP IN 2-3 WEEKS ) Yinka Miranda MD [Primary Care Provider] - Diet: Regular Addtl Attending Provider Instructions: HOSPITAL FOLLOW UP WITH DR MIRANDA IN A WEEK FOLLOW UP WITH LUNG SPECIALIST /PULMONOLOGY IN 2-3 WEEKS , NEED REPEAT LUNG FUNCTION TEST Pending Studies at Discharge: No Stand-Alone Forms: My [employer], Smoking Cessation Medications and DC Order Prescriptions: New azithromycin [Zithromax] 250 mg Tablet 250 mg PO QAM 3 Days Qty: 3 RF: 0 prednisone 20 mg tablet 20 mg PO UD 3 Days Qty: 10 RF: 0 Advair HFA 115-21 mcg/actuation HFA aerosol inhaler 2 puffs INH BID Qty: 12 RF: 3 Continued albuterol sulfate 90 mcg/actuation Hfa Aerosol Inhaler 2 puff INHALATION Q4 PRN (Reason: Wheezing) RF: 0 pseudoephedrine-guaifenesin [Mucinex D] 60-600 mg Tablet Extended Release 12 Hr 1 tab PO Q12H PRN (Reason: Congestion) RF: 0 Discharge Orders: Discharge Order (Routine); Ordered 01/11/20 Ordered By: Tanja Khan Admission Data Admit Date/Time: 10/14/19 11:30 Attending Provider: Tanja Khan Admit Provider: Anthony Rios Primary Care Provider: Yinka Miranda Other Providers: Anthony Rios
[2019-10-17 12:40] VITALS: BP 116/67
== END 2019-10-17 13:41 | disposition home or self-care (01) ==
LOC: 3W 08:12 → ED 08:12 → SUATTDRO 11:30 → 3W 13:48
DX: Z98.1 Arthrodesis status; M95.4 Acquired deformity of chest and rib; Z79.899 Other long term (current) drug therapy; J40 Bronchitis, not specified as acute or chronic; F17.220 Nicotine dependence, chewing tobacco, uncomplicated